=== PATIENT | male | born 1955 | race Caucasian/White ===

== ENCOUNTER 2017-10-08 14:12 | Inpatient (IN) | payer OTHER ==
[2017-10-08] MEDS ORDERED: HYDROmorphone 0.5 MG/0.5 ML SYRINGE IVPUSH ONE (14:44)
[2017-10-08] MEDS ORDERED: Ondansetron 4 MG/2 ML SDV IVPUSH ONE (14:44)
[2017-10-08] MEDS ORDERED: Sodium Chloride 0.9% 1,000 ML IV SCH (14:45)
[2017-10-08] MEDS ORDERED: Sodium Chloride 0.9% 10 ML Syringe FLUSH PRN (14:46)
--- NOTE | 2017-10-08 14:52 | EDM.PDOC ---
ED HPI GENERAL MEDICAL PROBLEM - General Chief Complaint: Abdominal Pain Stated Complaint: FLUID BUILD UP IN ABDOMINAL CAVITY Time Seen by Provider: 10/08/17 14:35 Source of Information: Reports: Patient History Limitations: Reports: No Limitations - History of Present Illness INITIAL COMMENTS - FREE TEXT/NARRATIVE: Patient is a 51-year-old male with history of pancreatic cancer and ascites who presents to the ED complaining of increased fluid to his abdomen. Patient states October 03, 2017 he was seen in [place] and had 3.5 bottles of fluid taken off via paracentesis. Patient's noticed his abdomen certainly growing increasingly larger, taunt, with pain throughout, patient states it is pushing up on his diaphragm causing increasing SOB. His is schedculed this coming Monday for paracentesis but does not believe he can make it. Has been drained on 2 separate occasions. 1st occurrence was September 29. He is mildly dizzy with body position changes with no chest pain at anytime. Denies any SOB at rest. No productive cough. No fever. No pain with urination although he states it is difficult with increased abdominal fluid. Denies any diarrhea. Last BM was yesterday. Has been passing gas. No blood within urine or stool. Of note patient was diagnosed with a blood infection recently requiring hospitalization. He had been receiving IV antibiotics via PICC line right arm. Patient was receiving 2 g of Rocephin for 2 weeks. Last dose was 2 days ago. Source of infection was believed to be the Port-A-Cath. Patient is undergoing chemotherapy at this time. He's had 1 additional round prior to starting this past week. In addition he had 5 weeks of radiation this past March. Patient is unclear on his staging of the Cancer. He was diagnosed with pancreatic cancer May 2016. Abdomen Pain Score (Numeric/FACES): 6 - Related Data Allergies Allergy/AdvReac Type Severity Reaction Status Date / Time No Known Allergies Allergy Verified 10/08/17 21:57 Home Meds: Home Meds Furosemide [Lasix] 20 mg PO BID 10/08/17 [History] Lutein 0 mg PO DAILY 10/08/17 [History] Multivitamin [Multivitamins] 1 cap PO DAILY 10/08/17 [History] Potassium Chloride [K-Tab ER] 20 meq PO BID 10/08/17 [History] Vitamin B Complex [B Complex] 1 tab PO DAILY 10/08/17 [History] Past Medical History Hematologic History: Reports: Anemia Oncologic (Cancer) History: Reports: Pancreatic Other Oncologic History: diagnosed 2016- has had chemo and radiation Social & Family History - Tobacco Use Smoking Status *Q: Never Smoker - Caffeine Use Caffeine Use: Reports: Soda - Recreational Drug Use Recreational Drug Use: No ED ROS GENERAL - Review of Systems Review Of Systems: ROS reveals no pertinent complaints other than HPI. ED EXAM, GI/ABD - Physical Exam Exam: See Below Exam Limited By: No Limitations General Appearance: Alert, WD/WN, No Apparent Distress Ears: Hearing Grossly Normal Nose: Normal Inspection Throat/Mouth: Normal Voice, No Airway Compromise Head: Atraumatic, Normocephalic Neck: Normal Inspection, Supple, Non-Tender, Full Range of Motion Respiratory/Chest: No Respiratory Distress, Lungs Clear, Normal Breath Sounds, No Accessory Muscle Use, Chest Non-Tender Cardiovascular: Normal Peripheral Pulses, Regular Rate, Rhythm, No JVD. No: Systolic Murmur GI/Abdominal Exam: Normal Bowel Sounds, Distended, Other (Positive fluid wave with only mild tenderness with palpation throughout. Has some redness to the skin from previous paracentesis. Unchanged. This was caused by the prepping Solution.) Extremities: Pedal Edema (2+) Neurological: Alert, Oriented, CN II-XII Intact, Normal Cognition, No Motor/ Sensory Deficits Psychiatric: Normal Affect, Normal Mood Skin Exam: Warm, Dry, Intact Course - Vital Signs Last Recorded V/S: Last Vital Signs Temp 98.8 F 10/08/17 20:12 Pulse 97 10/08/17 20:12 Resp 19 10/08/17 20:12 BP 119/67 10/08/17 20:12 Pulse Ox 100 10/08/17 20:12 - Orders/Labs/Meds Orders: Active Orders 24 hr Category Date Time Status EKG 12 Lead [EKG Documentation Completion] [RC] STAT Care 10/08/17 14:45 Active Peripheral IV Care [RC] . DIRECTED Care 10/08/17 14:46 Active CULTURE BLOOD [BC] Stat Lab 10/08/17 17:35 Results CULTURE BLOOD [BC] Stat Lab 10/08/17 18:15 Received Sodium Chloride 0.9% [Saline Flush] Med 10/08/17 14:46 Active 10 ml FLUSH ASDIRECTED PRN Blood Culture x2 Reflex Set [OM.PC] Stat Ot 10/08/17 17:12 Ordered Peripheral IV Insertion Adult [OM.PC] Routine Oth 10/08/17 14:46 Ordered Medication Orders Acetaminophen (Tylenol) 650 mg PO Q4H PRN PRN Reason: Pain (Mild 1-3)/fever Albuterol/Ipratropium (Duoneb 3.0-0.5 Mg/3 Ml) 3 ml NEB Q4H PRN PRN Reason: Shortness Of Breath/wheezing Furosemide (Lasix) 20 mg PO BIDDIURETIC [facility], [facility] Last Admin: 10/09/17 05:26 Dose: 20 mg Hydralazine HCl (Apresoline) 20 mg IVPUSH Q4H PRN PRN Reason: Hypertension Hydromorphone HCl (Dilaudid) 0.5 mg IVPUSH Q2H PRN PRN Reason: Pain (severe 7-10) Promethazine HCl 12.5 mg/ (Sodium Chloride) 50.5 mls @ 100 mls/hr IV Q6H PRN PRN Reason: Nausea/Vomiting Cefotaxime Sodium 2 gm/ Sodium (Chloride) 50 mls @ 100 mls/hr IV Q8H [facility] Last Admin: 10/09/17 05:25 Dose: 100 mls/hr Infusion: 10/08/17 23:18 Dose: 100 mls/hr Admin: 10/08/17 22:48 Dose: 100 mls/hr Vancomycin HCl 1.25 gm/ Sodium (Chloride) 250 mls @ 166.512 mls/hr IV Q8H [facility] Last Admin: 10/09/17 09:05 Dose: 166.512 mls/hr Lorazepam (Ativan) 2 mg IVPUSH Q4H PRN PRN Reason: Seizures Lorazepam (Ativan) 1 mg IV Q6H PRN PRN Reason: Anxiety Magnesium Sulfate (Pharmacy To Dose - Magnesium Replacement) 0 dose .XX ASDIRECTED PRN PRN Reason: RX TO WATCH MAG LEVELS Metoprolol Tartrate (Lopressor) 5 mg IVPUSH Q4H PRN PRN Reason: Tachycardia Multivitamins (Thera) 1 each PO DAILY [facility] Last Admin: 10/09/17 09:04 Dose: 1 each Ondansetron HCl (Zofran) 4 mg IV Q6H PRN PRN Reason: Nausea/Vomiting Oxycodone HCl (Oxycodone) 5 mg PO Q4H PRN PRN Reason: Pain (moderate 4-6) Potassium Chloride (Pharmacy To Dose - Potassium Replacement) 0 dose .XX ASDIRECTED PRN PRN Reason: RX TO WATCH K LEVELS Saccharomyces Boulardii (Florastor) 250 mg PO BID [facility] Last Admin: 10/09/17 09:03 Dose: 250 mg Sodium Chloride (Saline Flush) 10 ml FLUSH ASDIRECTED PRN PRN Reason: Keep Vein Open Last Admin: 10/08/17 15:19 Dose: 10 ml Temazepam (Restoril) 15 mg PO BEDTIME PRN PRN Reason: Sleep Last Admin: 10/08/17 22:57 Dose: 15 mg Vancomycin HCl (Pharmacy To Dose - Vancomycin) 0 dose .XX ASDIRECTED PRN PRN Reason: RX TO DOSE VANCOMYCIN Vitamin B Complex/Vitamin C (Super B With Vitamin C) 1 cap PO DAILY [facility] Last Admin: 10/09/17 09:04 Dose: 1 cap Labs: Laboratory Tests 10/08/17 10/08/17 10/08/17 Range/Units 16:00 16:00 16:00 WBC 20.08 H (4.23-9.07) K/mm3 RBC 3.08 L (4.63-6.08) M/mm3 Hgb 8.8 L (13.7-17.5) gm/L Hct 28.0 L (40.1-51.0) % MCV 90.9 (79.0-92.2) fl MCH 28.6 (25.7-32.2) pg MCHC 31.4 L (32.2-35.5) g/dl RDW Std Deviation 73.6 H (35.1-43.9) fL Plt Count 136 L (163-337) K/mm3 MPV 12.3 (9.4-12.3) fl Neutrophils % (Manual) 92 H (40-60) % Band Neutrophils % 0 (0-10) % Lymphocytes % (Manual) 5 L (20-40) % Atypical Lymphs % 0 % Monocytes % (Manual) 3 (2-10) % Eosinophils % (Manual) 0 L (0.8-7.0) % Basophils % (Manual) 0 L (0.2-1.2) Platelet Estimate Adequate Hypochromasia Few Poikilocytosis 1+ slight Anisocytosis 2+ moderate Macrocytosis 1+ slight Tear Drop Cells Few RBC Morph Comment Not Reportable Sodium 132 L (136-145) mEq/L Potassium 4.8 (3.5-5.1) mEq/L Chloride 101 (98-107) mEq/L Carbon Dioxide 23 (21-32) mEq/L Anion Gap 12.8 (5-15) BUN 33 H (7-18) mg/dL Creatinine 0.8 (0.7-1.3) mg/dL Est Cr Clr Drug Dosing 109.13 mL/min Estimated GFR (MDRD) > 60 (>60) mL/min BUN/Creatinine Ratio 41.3 H (14-18) Glucose 157 H (74-106) mg/dL Lactic Acid (0.4-2.0) mmol/L Calcium 8.6 (8.5-10.1) mg/dL Total Bilirubin 1.9 H (0.2-1.0) mg/dL AST 147 H (15-37) U/L ALT 93 H (16-63) U/L Alkaline Phosphatase 1022 H (46-116) U/L C-Reactive Protein 19.5 H* (<1.0) mg/dL NT-Pro-B Natriuret Pep 278 H (0-125) pg/mL Total Protein 5.2 L (6.4-8.2) g/dl Albumin 1.5 L (3.4-5.0) g/dl Globulin 3.7 gm/dL Albumin/Globulin Ratio 0.4 L (1-2) Lipase 29 L (73-393) U/L Urine Color (Yellow) Urine Appearance (Clear) Urine pH (5.0-8.0) Ur Specific [place] (1.005-1.030) Urine Protein (Negative) Urine Glucose (UA) (Negative) Urine Ketones (Negative) Urine Occult Blood (Negative) Urine Nitrite (Negative) Urine Bilirubin (Negative) Urine Urobilinogen (0.2-1.0) Ur Leukocyte Esterase (Negative) Urine RBC (0-5) /hpf Urine WBC (0-5) /hpf Ur Epithelial Cells (0-5) /hpf Urine Bacteria (FEW) /hpf Urine Mucus (FEW) /hpf 10/08/17 10/08/17 Range/Units 16:15 17:35 WBC (4.23-9.07) K/mm3 RBC (4.63-6.08) M/mm3 Hgb (13.7-17.5) gm/L Hct (40.1-51.0) % MCV (79.0-92.2) fl MCH (25.7-32.2) pg MCHC (32.2-35.5) g/dl RDW Std Deviation (35.1-43.9) fL Plt Count (163-337) K/mm3 MPV (9.4-12.3) fl Neutrophils % (Manual) (40-60) % Band Neutrophils % (0-10) % Lymphocytes % (Manual) (20-40) % Atypical Lymphs % % Monocytes % (Manual) (2-10) % Eosinophils % (Manual) (0.8-7.0) % Basophils % (Manual) (0.2-1.2) Platelet Estimate Hypochromasia Poikilocytosis Anisocytosis Macrocytosis Tear Drop Cells RBC Morph Comment Sodium (136-145) mEq/L Potassium (3.5-5.1) mEq/L Chloride (98-107) mEq/L Carbon Dioxide (21-32) mEq/L Anion Gap (5-15) BUN (7-18) mg/dL Creatinine (0.7-1.3) mg/dL Est Cr Clr Drug Dosing mL/min Estimated GFR (MDRD) (>60) mL/min BUN/Creatinine Ratio (14-18) Glucose (74-106) mg/dL Lactic Acid 1.5 (0.4-2.0) mmol/L Calcium (8.5-10.1) mg/dL Total Bilirubin (0.2-1.0) mg/dL AST (15-37) U/L ALT (16-63) U/L Alkaline Phosphatase (46-116) U/L C-Reactive Protein (<1.0) mg/dL NT-Pro-B Natriuret Pep (0-125) pg/mL Total Protein (6.4-8.2) g/dl Albumin (3.4-5.0) g/dl Globulin gm/dL Albumin/Globulin Ratio (1-2) Lipase (73-393) U/L Urine Color Dark yellow (Yellow) Urine Appearance Clear (Clear) Urine pH 6.0 (5.0-8.0) Ur Specific [place] 1.020 (1.005-1.030) Urine Protein 1+ H (Negative) Urine Glucose (UA) Negative (Negative) Urine Ketones Negative (Negative) Urine Occult Blood Negative (Negative) Urine Nitrite Negative (Negative) Urine Bilirubin 1+ H (Negative) Urine Urobilinogen 2.0 H (0.2-1.0) Ur Leukocyte Esterase Negative (Negative) Urine RBC 0-5 (0-5) /hpf Urine WBC 0-5 (0-5) /hpf Ur Epithelial Cells 0-5 (0-5) /hpf Urine Bacteria Moderate H (FEW) /hpf Urine Mucus Moderate H (FEW) /hpf Meds: Medications Generic Name Dose Route Start Last Admin Trade Name Freq PRN Reason Stop Dose Admin Acetaminophen 650 mg 10/08/17 21:24 Tylenol PO Q4H PRN Pain (Mild 1-3)/fever Albuterol/Ipratropium 3 ml 10/08/17 21:24 Duoneb 3.0-0.5 Mg/3 Ml NEB Q4H PRN Shortness Of Breath/wheezing Furosemide 20 mg 10/09/17 06:00 10/09/17 05:26 Lasix PO 20 mg BIDDIURETIC MICKI Administration Hydralazine HCl 20 mg 10/08/17 21:23 Apresoline IVPUSH Q4H PRN Hypertension Hydromorphone HCl 0.5 mg 10/09/17 09:26 Dilaudid IVPUSH Q2H PRN Pain (severe 7-10) Promethazine HCl 12.5 mg/ 50.5 mls @ 100 mls/hr 10/08/17 21:24 Sodium Chloride IV Q6H PRN Nausea/Vomiting Cefotaxime Sodium 2 gm/ Sodium 50 mls @ 100 mls/hr 10/08/17 22:00 10/09/17 05 :25 Chloride IV 100 mls/hr Q8H MICKI Administration Vancomycin HCl 1.25 gm/ Sodium 250 mls @ 166.512 mls/hr 10/09/17 08:00 09:05 Chloride IV 166.512 mls/hr Q8H MICKI Administration Lorazepam 2 mg 10/08/17 21:23 Ativan IVPUSH Q4H PRN Seizures Lorazepam 1 mg 10/08/17 21:24 Ativan IV Q6H PRN Anxiety Magnesium Sulfate 0 dose 10/08/17 21:30 Pharmacy To Dose - Magnesium Replacement .XX ASDIRECTED PRN RX TO WATCH MAG LEVELS Metoprolol Tartrate 5 mg 10/08/17 21:23 Lopressor IVPUSH Q4H PRN Tachycardia Multivitamins 1 each 10/09/17 09:00 10/09/17 09:04 Thera PO 1 each DAILY MICKI Administration Ondansetron HCl 4 mg 10/08/17 21:24 Zofran IV Q6H PRN Nausea/Vomiting Oxycodone HCl 5 mg 10/08/17 21:24 Oxycodone PO Q4H PRN Pain (moderate 4-6) Potassium Chloride 0 dose 10/08/17 21:30 Pharmacy To Dose - Potassium Replacement .XX ASDIRECTED PRN RX TO WATCH K LEVELS Saccharomyces Boulardii 250 mg 10/09/17 09:00 10/09/17 09:03 Florastor PO 250 mg BID MICKI Administration Sodium Chloride 10 ml 10/08/17 14:46 10/08/17 15:19 Saline Flush FLUSH 10 ml ASDIRECTED PRN Administration Keep Vein Open Temazepam 15 mg 10/08/17 21:24 10/08/17 22:57 Restoril PO 15 mg BEDTIME PRN Administration Sleep Vancomycin HCl 0 dose 10/08/17 21:45 Pharmacy To Dose - Vancomycin .XX ASDIRECTED PRN RX TO DOSE VANCOMYCIN Vitamin B Complex/Vitamin C 1 cap 10/09/17 09:00 10/09/17 09:04 Super B With Vitamin C PO 1 cap DAILY MICKI Administration Discontinued Medications Generic Name Dose Route Start Last Admin Trade Name Freq PRN Reason Stop Dose Admin Fentanyl 12 mcg 10/08/17 21:30 10/08/17 23:07 Duragesic TRDERM Not Given Q72H MICKI Hydromorphone HCl 0.5 mg 10/08/17 14:44 10/08/17 15:19 Dilaudid IVPUSH 10/08/17 14:45 0.5 mg ONETIME ONE Administration Hydromorphone HCl 0.25 mg 10/08/17 21:24 Dilaudid IVPUSH Q2H PRN Pain (severe 7-10) Sodium Chloride 1,000 mls @ 150 mls/hr 10/08/17 14:45 Normal Saline IV ASDIRECTED MICKI Cefepime HCl 2 gm/ Premix 50 mls @ 100 mls/hr 10/08/17 18:11 10/08/17 18:41 IV 10/08/17 18:40 100 mls/hr ONETIME ONE Administration Vancomycin HCl 2 gm/ Sodium 250 mls @ 250 mls/hr 10/08/17 18:11 10/08/17 19: 04 Chloride IV 10/08/17 19:10 Not Given ONETIME ONE Vancomycin HCl 2 gm/ Sodium 250 mls @ 250 mls/hr 10/08/17 18:26 10/08/17 19: 04 Chloride IV 10/08/17 19:25 Not Given ONETIME ONE Sodium Chloride Confirm 10/08/17 18:50 10/08/17 19:03 Normal Saline Administered 10/08/17 18:51 Not Given Dose 250 mls @ as directed .ROUTE .STK-MED ONE Vancomycin HCl 2 gm/ Sodium 250 mls @ 250 mls/hr 10/08/17 19:00 10/08/17 19: 17 Chloride IV 10/08/17 19:59 250 mls/hr ONETIME ONE Administration Vancomycin HCl 1.25 gm/ Sodium 500 mls @ 333 mls/hr 10/09/17 06:00 Chloride IV Q8H [facility] Lidocaine/Epinephrine 20 ml 10/08/17 17:14 10/08/17 19:22 Xylocaine 1% With Epinephrine 1:100,000 INJECT 10/08/17 17:15 Not Given ONETIME ONE Lidocaine/Epinephrine 20 ml 10/08/17 17:15 10/08/17 19:22 Xylocaine 1% With Epinephrine 1:100,000 INJECT 10/08/17 17:16 Not Given ONETIME ONE Lorazepam 0.5 mg 10/08/17 21:41 10/08/17 23:07 Ativan IVPUSH 10/08/17 21:42 Not Given ONETIME ONE Protocol Magnesium Oxide 800 mg 10/09/17 09:00 10/09/17 09:04 Magnesium Oxide PO 10/09/17 09:01 800 mg ONETIME ONE Administration Miscellaneous Information 1 ea 10/08/17 21:30 10/08/17 23:08 Remove Patch TRDERM Not Given Q72H [facility] Non-Formulary Medication 10 mg 10/09/17 09:00 Lutein PO DAILY MICKI Ondansetron HCl 4 mg 10/08/17 14:44 10/08/17 15:19 Zofran IVPUSH 10/08/17 14:45 4 mg ONETIME ONE Administration - Re-Assessments/Exams Free Text/Narrative Re-Assessment/Exam: Patient is a positive fluid wave with redness noted to the right anterior lateral aspect of the abdomen and low back. It is not sharply demarcated. Centrally appears to be contact dermatitis with dry skin present. It appears patient has been itching this area. Mild increased warmth noted. Concerning for possible low-grade cellulitis. Patient states this is secondary to allergic reaction to prepping solution. First paracentesis was September 29 and then 4 days later. This has not worsened. He does not have peritoneal signs. Will obtain records from [facility] and clinic where his oncologist resides. IV established. Ordered Dilaudid 0.5 mg IVP and also Zofran 4 mg IVP. Initial labs and studies will include CBC, chem 14, lipase, proBNP, UA, CRP, bladder scan, EKG, and abdomen series with chest. X-ray of the abdomen and chest did not reveal any concerning findings. This was reviewed with Dr. Joshua Perez. 10/08/17 16:44 EKG sinus rhythm at a rate of 96 with low voltage to the extremity leads. Diffuse T-wave flattening. No evidence of acute ischemia. Labs reviewed: White blood cell count 20.08, hemoglobin 8.8, platelet count 136 , neutrophil percent is 92, sodium 132, BUN/creatinine 33, creatinine 0.8, glucose 157, total bilirubin is 1.9, AST 147, ALT 93, alk phosphatase is 1022, CRP 19.5, proBNP is 278, lipase 29. Findings are concerning for spontaneous bacterial peritonitis. As spoken with Dr. Perez and she agrees with proceeding with paracentesis while in the ED. Patient agrees with proceeding with paracentesis. Risks, benefits, and alternative treatments discussed with patient. Risks being bleeding, infection , perforation of bowel. Order blood cultures 2 and lactic acid. Lactic Acid: WNL. 10/08/17 18:00 we will set up for paracentesis. Dr. ePrez did evaluate the patient and is leaning towards more conservative therapy at this point. Findings are concerning for possible cellulitis. Will opt to treat with broad- spectrum antibiotics and then have Gen. surgery consult with paracentesis performed tomorrow. 10/08/17 18:[address] Adames, requests I contact transitions manager rn General Surgeon if they would be willing to do a paracentesis if consulted. If so he agreed to admit. [address] López stated he would perform paracentesis on consult. He is not transitions manager rn tomorrow thus consulting him or may work as well. Attempted to call Dr. Adames with no answer. Nursing staff has called as well. They are arranging for room. Departure - Departure Time of Disposition: 17:00 Disposition: Admitted As Inpatient 68 Condition: Fair Clinical Impression: Cellulitis of abdominal wall Ascites Qualifiers: Ascites type: malignant Qualified Code(s): R18.0 - Malignant ascites - Discharge Information - My Orders Last 24 Hours: My Active Orders 10/08/17 14:45 EKG 12 Lead [EKG Documentation Completion] [RC] STAT 10/08/17 14:46 Peripheral IV Care [RC] . DIRECTED Sodium Chloride 0.9% [Saline Flush] 10 ml FLUSH ASDIRECTED PRN Peripheral IV Insertion Adult [OM.PC] Routine 10/08/17 17:12 Blood Culture x2 Reflex Set [OM.PC] Stat 10/08/17 17:35 CULTURE BLOOD [BC] Stat 10/08/17 18:15 CULTURE BLOOD [BC] Stat - Assessment/Plan Last 24 Hours: My Active Orders 10/08/17 14:45 EKG 12 Lead [EKG Documentation Completion] [RC] STAT 10/08/17 14:46 Peripheral IV Care [RC] . DIRECTED Sodium Chloride 0.9% [Saline Flush] 10 ml FLUSH ASDIRECTED PRN Peripheral IV Insertion Adult [OM.PC] Routine 10/08/17 17:12 Blood Culture x2 Reflex Set [OM.PC] Stat 10/08/17 17:35 CULTURE BLOOD [BC] Stat 10/08/17 18:15 CULTURE BLOOD [BC] Stat
[2017-10-08] MEDS ORDERED: Lidocaine 1% with EPINEPHrine 1:100,000 20 ML MDV INJECT ONE ×2 (17:14→17:15)
[2017-10-08] MEDS ORDERED: Cefepime 2 GM in Premix Bag 1 BAG IV ONE (18:11)
[2017-10-08] MEDS ORDERED: Sodium Chloride 0.9% 250 ML ONE (18:50)
[2017-10-08] MEDS ORDERED: LORazepam 2 MG/ML SDV IVPUSH PRN (21:23)
[2017-10-08] MEDS ORDERED: hydrALAZINE 20 MG/ML SDV IVPUSH PRN (21:23)
[2017-10-08] MEDS ORDERED: Metoprolol Tartrate 5 MG/5 ML SDV IVPUSH PRN (21:23)
--- NOTE | 2017-10-08 21:23 | PCM.HP ---
H&P History of Present Illness - General Date of Service: 10/08/17 Admit Problem/Dx: Admission Diagnosis/Problem Admission Diagnosis/Problem Cellulitis Source of Information: Patient, Family, Old Records, Provider, RN Notes Reviewed , Significant Other History Limitations: Reports: No Limitations - History of Present Illness Initial Comments - Free Text/Narative: This is s 61 yo white male with no significant past medical hx/o who comes in for worsening abdominal tightness and edema. Patient carries a hx/o pancreatic cancer. He was diagnosed back in 2015 in [place], [place]. He took oncologic treatment up until November of 2016. He was referred to [facility] on the 22 of December and then received radiation therapy for 5 weeks at the end of January 2017. He is currently following Dr. David Salazar for oncologic care in [place], [place]. He has been going to [facility] for routine paracentesis. Unfortunately, IR is not available so he proceeded to come over here to [place] for further evaluation. He had his port-a-cath removed about a week ago and currently has a PICC line for IV access. He also just completed an intravenous infusion of Rocephin. Patient denies alcohol or tobacco use. He further denies any history of pancreatic cancer in the family. His initial workup in the emergency department shows a CBC remarkable for WBC of 20.08, RBC of 3.03, hemoglobin of 8.8, hematocrit of 28, MCHC of 31.4, RDW of 17.6, platelet count of 136, neutrophils of 92% and lymphocytes of 5%. His chemistry is remarkable for sodium of 132, BUN of 33, glucose of 157, total bilirubin of 1.9, AST of 147, ALT of 93, alkaline phosphatase of 1022, CRP of 19.5, proBNP of 278, total protein of 5.2, albumin of 1.5, and lipase of 29. His UA is negative for urinary tract infection. Chest/abdominal x-ray shows small pleural effusions. TIPS stent and right sided PICC line. Patient is being admitted for abdominal ascites and distension secondary to pancreatic cancer. He is full code. Abdomen Pain Score (Numeric/FACES): 6 - Related Data Allergies/Adverse Reactions: Allergies Allergy/AdvReac Type Severity Reaction Status Date / Time No Known Allergies Allergy Verified 10/08/17 21:57 Home Medications: Home Meds Furosemide [Lasix] 20 mg PO BID 10/08/17 [History] Lutein 0 mg PO DAILY 10/08/17 [History] Multivitamin [Multivitamins] 1 cap PO DAILY 10/08/17 [History] Potassium Chloride [K-Tab ER] 20 meq PO BID 10/08/17 [History] Vitamin B Complex [B Complex] 1 tab PO DAILY 10/08/17 [History] Past Medical History Hematologic History: Reports: Anemia Oncologic (Cancer) History: Reports: Pancreatic Other Oncologic History: diagnosed 2016- has had chemo and radiation Social & Family History - Tobacco Use Smoking Status *Q: Never Smoker Second Hand Smoke Exposure: No - Caffeine Use Caffeine Use: Reports: Soda, Tea - Alcohol Use Days Per Week of Alcohol Use: 1 Number of Drinks Per Day: 0 Total Drinks Per Week: 0 Date of Last Drink: 09/03/17 Time of Last Drink: 16:00 - Recreational Drug Use Recreational Drug Use: No H&P Review of Systems - Review of Systems: Review Of Systems: See Below General: Reports: Decreased Appetite. Denies: Fever, Chills, Malaise, Weakness , Fatigue HEENT: Reports: No Symptoms Pulmonary: Denies: Shortness of Breath, Wheezing, Pleuritic Chest Pain, Cough, Sputum, Hemoptysis Cardiovascular: Reports: Edema (abdominal). Denies: Palpitations, Dyspnea on Exertion, Orthopnea, Lightheadedness, Syncope, Claudication, Blood Pressure Problem Gastrointestinal: Reports: Anorexia, Decreased Appetite, Distension, Flatus, Other (Abdominal tightness). Denies: Abdominal Pain, Bloody Stool, Constipation , Diarrhea, Difficulty Swallowing, Hematemesis, Hematochezia, Nausea, Vomiting Genitourinary: Reports: Urgency Musculoskeletal: Reports: No Symptoms Skin: Reports: Erythema. Denies: Cyanosis, Mottled, Pallor, Diaphoresis Psychiatric: Denies: Depression, Anxiety, Hallucinations, Homicidal Ideation Neurological: Reports: Weakness. Denies: Confusion, Pre-Existing Deficit, Difficulty Walking, Gait Disturbance Hematologic/Lymphatic: Reports: No Symptoms Immunologic: Reports: No Symptoms Exam - Exam Exam: See Below - Vital Signs Vital Signs: Last Vital Signs Temp 37.1 C 10/08/17 20:12 Pulse 97 10/08/17 20:12 Resp 19 10/08/17 20:12 BP 119/67 10/08/17 20:12 Pulse Ox 100 10/08/17 20:12 Weight: 83.659 kg - Exam General: Alert, Oriented, Cooperative, Other (cachectic). No: Mild Distress HEENT: Conjunctiva Clear, EACs Clear, EOMI, Hearing Intact, Nares Patent, Normal Nasal Septum, Posterior Pharynx Clear, Pupils Equal, Pupils Reactive. No : Mucosa Moist & [place] Neck: Supple, Trachea Midline, +2 Carotid Pulse wo Bruit Lungs: Normal Respiratory Effort, Decreased Breath Sounds Cardiovascular: Regular Rate, Regular Rhythm GI/Abdominal Exam: Normal Bowel Sounds, Soft, No Mass, Distended, Guarding, Tender, Hepatomegaly, Other (Abdominal edema). No: Rigid, Rebound (Male) Exam: Deferred Rectal (Males) Exam: Deferred Back Exam: Normal Inspection, Decreased Range of Motion Extremities: Normal Inspection, Normal Range of Motion, Non-Tender, No Pedal Edema, Normal Capillary Refill Peripheral Pulses: 3+: Posterior Tibial (L), Posterior Tibial (R), Dorsalis Pedis (L), Dorsalis Pedis (R) Skin: Warm, Dry, Intact Neuro Extensive - Mental Status: Oriented x3, Normal Cognition, Memory Intact Neuro Extensive - Motor, Sensory, Reflexes: CN II-XII Intact, Normal Gait Psychiatric: Alert, Normal Mood. No: Normal Affect, Anxious, Depressed, Agitated, Suicidal Ideation - Patient Data Result Diagrams: 10/09/17 06:15 10/09/17 06:15 *Q Meaningful Use (ADM) - VTE *Q VTE Criteria *Q: - Stroke *Q Stroke Criteria *Q: - AMI *Q AMI Criteria *Q: Problem List Initiated/Reviewed/Updated: Yes Orders Last 24hrs: Active Orders 24 hr Category Date Time Status Cardiac Monitoring [RC] . DIRECTED Care 10/08/17 19:50 Active Medication Orders Sodium Chloride (Saline Flush) 10 ml FLUSH ASDIRECTED PRN PRN Reason: Keep Vein Open Last Admin: 10/08/17 15:19 Dose: 10 ml Assessment/Plan Comment:: Assessment/Plan: Acute: Abdominal Ascites and Edema - 2/2 Pancreatic Cancer - Abdominal CT can ordered - GD consult in AM for paracentesis - PRN and Scheduled Pain Medications - Continue diuretic and K supplement SSTI/Erysipelas - Abdomen - High Risk for SBP - Cefotaxime 2 gram Q8H with better fluid penetration and Vancomycin 1 violeta BID for pharmacy to dose - Monitor response Pancytpenia - 2/2 Underlying Malignancy - Hgb is 8.8; no baseline - Consider transfusion if continues to drop Hypoalbuminemia - Albumin of 1.5 - Dietary consult for protein wasting syndrome Chronic: Pancreatic Cancer Weight Loss Plan: Admit to the floor Resume Home Meds Routine AM Labs PT/OT consult Dietary Consult GD consult in for paracentesis SW/CM for d/c planning Code Status:1
[2017-10-08] MEDS ORDERED: HYDROmorphone 0.5 MG/0.5 ML SYRINGE IVPUSH PRN (21:24)
[2017-10-08] MEDS ORDERED: LORazepam 2 MG/ML SDV IV PRN (21:24)
[2017-10-08] MEDS ORDERED: Ondansetron 4 MG/2 ML SDV IV PRN (21:24)
[2017-10-08] MEDS ORDERED: Albuterol/Ipratropium 3.0-0.5 MG/3 ML Neb Soln NEB PRN (21:24)
[2017-10-08] MEDS ORDERED: Acetaminophen 325 MG Tab PO PRN (21:24)
[2017-10-08] MEDS ORDERED: Promethazine 12.5 MG in Sodium Chloride 0.9% 50 ML IV PRN (21:24)
[2017-10-08] MEDS ORDERED: oxyCODONE 5 MG Tab PO PRN (21:24)
[2017-10-08] MEDS ORDERED: fentaNYL 12 MCG/HR Transdermal Patch TRDERM SCH (21:30)
[2017-10-08] MEDS: Cefotaxime 2 GM in Sodium Chloride 0.9% 50 ML IV SCH (22:48)
[2017-10-08] MEDS: Temazepam 15 MG Cap PO PRN (22:57)
[2017-10-08] MEDS: LORazepam 2 MG/ML SDV IVPUSH ONE ×2 (22:58→23:07)
[2017-10-09] MEDS: Cefotaxime 2 GM in Sodium Chloride 0.9% 50 ML IV SCH ×3 (05:25→22:08)
[2017-10-09] MEDS ORDERED: Vancomycin 1.25 GM in Sodium Chloride 0.9% 500 ML IV SCH (06:00)
[2017-10-09] MEDS ORDERED: Furosemide 20 MG Tab PO SCH (06:00)
--- NOTE | 2017-10-09 07:42 | PCM.PN ---
- General Info Date of Service: 10/09/17 Admission Dx/Problem (Free Text): Admission Diagnosis/Problem Admission Diagnosis/Problem Cellulitis Subjective Update: Follow Up Functional Status: Reports: Pain Controlled, Tolerating Diet, Ambulating, Urinating - Review of Systems General: Reports: Weakness, Fatigue, Malaise. Denies: Fever HEENT: Denies: No Symptoms Pulmonary: Denies: Shortness of Breath, Cough Cardiovascular: Reports: Edema. Denies: Chest Pain, Palpitations, Dyspnea on Exertion, Orthopnea, Lightheadedness Gastrointestinal: Reports: Abdominal Pain, Decreased Appetite, Other (Abdominal edema). Denies: Nausea, Vomiting Genitourinary: Reports: No Symptoms Musculoskeletal: Reports: No Symptoms Skin: Reports: Rash (abdominal region). Denies: Cyanosis, Jaundice, Mottled, Pallor, Diaphoresis, Bruising Neurological: Reports: Weakness, Gait Disturbance. Denies: Confusion, Pre- Existing Deficit, Seizure, Syncope, Difficulty Walking Psychiatric: Denies: Depression, Anxiety, Agitation, Hallucinations Systems Review Comment:: No significant overnight or acute issues. He slept pretty good. His pain is controlled at rest but no when he is moving or with activity. His Hgb is now at 8.0 this morning. He remains afebrile with improved WBC level of 13.34. - Patient Data Vitals - Most Recent: Last Vital Signs Temp 37.1 C 10/08/17 20:12 Pulse 97 10/08/17 20:12 Resp 19 10/08/17 20:12 BP 119/67 10/08/17 20:12 Pulse Ox 100 10/08/17 20:12 Weight - Most Recent: 83.659 kg Lab Results Last 24 Hours: Laboratory Results - last 24 hr 10/09/17 10/09/17 Range/Units 06:15 06:15 WBC 13.34 H (4.23-9.07) K/mm3 RBC 2.78 L (4.63-6.08) M/mm3 Hgb 8.0 L (13.7-17.5) gm/L Hct 25.3 L (40.1-51.0) % MCV 91.0 (79.0-92.2) fl MCH 28.8 (25.7-32.2) pg MCHC 31.6 L (32.2-35.5) g/dl RDW Std Deviation 72.2 H (35.1-43.9) fL Plt Count 102 L (163-337) K/mm3 MPV 12.4 H (9.4-12.3) fl Neut % (Auto) 97.0 H (34.0-67.9) % Lymph % (Auto) 1.1 L (21.8-53.1) % [place] % (Auto) 0.2 L (5.3-12.2) % Eos % (Auto) 1.6 (0.8-7.0) Baso % (Auto) 0.0 L (0.1-1.2) % Neut # (Auto) 12.92 H (1.78-5.38) K/mm3 Lymph # (Auto) 0.15 L (1.32-3.57) K/mm3 [place] # (Auto) 0.03 L (0.30-0.82) K/mm3 Eos # (Auto) 0.22 (0.04-0.54) K/mm3 Baso # (Auto) 0.00 L (0.01-0.08) K/mm3 Sodium 132 L (136-145) mEq/L Potassium 4.5 (3.5-5.1) mEq/L Chloride 101 (98-107) mEq/L Carbon Dioxide 24 (21-32) mEq/L Anion Gap 11.5 (5-15) BUN 35 H (7-18) mg/dL Creatinine 0.9 (0.7-1.3) mg/dL Est Cr Clr Drug Dosing 97.00 mL/min Estimated GFR (MDRD) > 60 (>60) mL/min BUN/Creatinine Ratio 38.9 H (14-18) Glucose 157 H (74-106) mg/dL Calcium 8.4 L (8.5-10.1) mg/dL Magnesium 1.7 L (1.8-2.4) mg/dl Total Bilirubin 2.0 H (0.2-1.0) mg/dL AST 100 H (15-37) U/L ALT 95 H (16-63) U/L Alkaline Phosphatase 873 H (46-116) U/L C-Reactive Protein 31.4 H* (<1.0) mg/dL Total Protein 4.9 L (6.4-8.2) g/dl Albumin 1.3 L (3.4-5.0) g/dl Globulin 3.6 gm/dL Albumin/Globulin Ratio 0.4 L (1-2) Med Orders - Current: Current Medications Acetaminophen (Tylenol) 650 mg PO Q4H PRN PRN Reason: Pain (Mild 1-3)/fever Albuterol/Ipratropium (Duoneb 3.0-0.5 Mg/3 Ml) 3 ml NEB Q4H PRN PRN Reason: Shortness Of Breath/wheezing Fentanyl (Duragesic) 12 mcg TRDERM Q72H [facility] Last Admin: 10/08/17 23:07 Dose: Not Given Furosemide (Lasix) 20 mg PO BIDDIURETIC [facility] Last Admin: 10/09/17 05:26 Dose: 20 mg Hydralazine HCl (Apresoline) 20 mg IVPUSH Q4H PRN PRN Reason: Hypertension Hydromorphone HCl (Dilaudid) 0.25 mg IVPUSH Q2H PRN PRN Reason: Pain (severe 7-10) Promethazine HCl 12.5 mg/ (Sodium Chloride) 50.5 mls @ 100 mls/hr IV Q6H PRN PRN Reason: Nausea/Vomiting Cefotaxime Sodium 2 gm/ Sodium (Chloride) 50 mls @ 100 mls/hr IV Q8H [facility] Last Admin: 10/09/17 05:25 Dose: 100 mls/hr Vancomycin HCl 1.25 gm/ Sodium (Chloride) 500 mls @ 333 mls/hr IV Q8H [facility] Lorazepam (Ativan) 2 mg IVPUSH Q4H PRN PRN Reason: Seizures Lorazepam (Ativan) 1 mg IV Q6H PRN PRN Reason: Anxiety Magnesium Sulfate (Pharmacy To Dose - Magnesium Replacement) 0 dose .XX ASDIRECTED PRN PRN Reason: RX TO WATCH MAG LEVELS Metoprolol Tartrate (Lopressor) 5 mg IVPUSH Q4H PRN PRN Reason: Tachycardia Miscellaneous Information (Remove Patch) 1 ea TRDERM Q72H [facility] Last Admin: 10/08/17 23:08 Dose: Not Given Multivitamins (Thera) 1 each PO DAILY [facility] Ondansetron HCl (Zofran) 4 mg IV Q6H PRN PRN Reason: Nausea/Vomiting Oxycodone HCl (Oxycodone) 5 mg PO Q4H PRN PRN Reason: Pain (moderate 4-6) Potassium Chloride (Pharmacy To Dose - Potassium Replacement) 0 dose .XX ASDIRECTED PRN PRN Reason: RX TO WATCH K LEVELS Saccharomyces Boulardii (Florastor) 250 mg PO TID MICKI Sodium Chloride (Saline Flush) 10 ml FLUSH ASDIRECTED PRN PRN Reason: Keep Vein Open Last Admin: 10/08/17 15:19 Dose: 10 ml Temazepam (Restoril) 15 mg PO BEDTIME PRN PRN Reason: Sleep Last Admin: 10/08/17 22:57 Dose: 15 mg Vancomycin HCl (Pharmacy To Dose - Vancomycin) 0 dose .XX ASDIRECTED PRN PRN Reason: RX TO DOSE VANCOMYCIN Vitamin B Complex/Vitamin C (Super B With Vitamin C) 1 cap PO DAILY [facility] Discontinued Medications Hydromorphone HCl (Dilaudid) 0.5 mg IVPUSH ONETIME ONE Stop: 10/08/17 14:45 Last Admin: 10/08/17 15:19 Dose: 0.5 mg Sodium Chloride (Normal Saline) 1,000 mls @ 150 mls/hr IV ASDIRECTED MICKI Cefepime HCl 2 gm/ Premix 50 mls @ 100 mls/hr IV ONETIME ONE Stop: 10/08/17 18:40 Last Admin: 10/08/17 18:41 Dose: 100 mls/hr Vancomycin HCl 2 gm/ Sodium (Chloride) 250 mls @ 250 mls/hr IV ONETIME ONE Stop: 10/08/17 19:10 Last Admin: 10/08/17 19:04 Dose: Not Given Vancomycin HCl 2 gm/ Sodium (Chloride) 250 mls @ 250 mls/hr IV ONETIME ONE Stop: 10/08/17 19:25 Last Admin: 10/08/17 19:04 Dose: Not Given Sodium Chloride (Normal Saline) Confirm Administered Dose 250 mls @ as directed .ROUTE .STK-MED ONE Stop: 10/08/17 18:51 Last Admin: 10/08/17 19:03 Dose: Not Given Vancomycin HCl 2 gm/ Sodium (Chloride) 250 mls @ 250 mls/hr IV ONETIME ONE Stop: 10/08/17 19:59 Last Admin: 10/08/17 19:17 Dose: 250 mls/hr Lidocaine/Epinephrine (Xylocaine 1% With Epinephrine 1:100,000) 20 ml INJECT ONETIME ONE Stop: 10/08/17 17:15 Last Admin: 10/08/17 19:22 Dose: Not Given Lidocaine/Epinephrine (Xylocaine 1% With Epinephrine 1:100,000) 20 ml INJECT ONETIME ONE Stop: 10/08/17 17:16 Last Admin: 10/08/17 19:22 Dose: Not Given Lorazepam (Ativan) 0.5 mg IVPUSH ONETIME ONE PRN Reason: Protocol Stop: 10/08/17 21:42 Last Admin: 10/08/17 23:07 Dose: Not Given Non-Formulary Medication (Lutein) 10 mg PO DAILY [facility] Ondansetron HCl (Zofran) 4 mg IVPUSH ONETIME ONE Stop: 10/08/17 14:45 Last Admin: 10/08/17 15:19 Dose: 4 mg - Exam General: Alert, Oriented, Cooperative, No Acute Distress, Other (cachectic) HEENT: Pupils Equal, Pupils Reactive, EOMI, Mucous Membr. Moist/[place], Other ( bitemporal wasting) Neck: Supple, Trachea Midline, No JVD, No Thyromegaly Lungs: Normal Respiratory Effort, Decreased Breath Sounds Cardiovascular: Regular Rate, Regular Rhythm GI/Abdominal Exam: Normal Bowel Sounds, No Organomegaly, Distended, Tender, Hepatomegaly, Other (tight on palpation). No: Soft, Rigid, Rebound, Hernia (Male) Exam: Deferred Back Exam: Normal Inspection, Decreased Range of Motion Extremities: Normal Inspection, Normal Range of Motion, Non-Tender, Pedal Edema , Other (2-3+ pitting edema on bilateral lower extremity). No: Normal Capillary Refill Peripheral Pulses: 1+: Dorsalis Pedis (L), Dorsalis Pedis (R) Skin: Warm, Dry, Intact Neurological: No New Focal Deficit Psy/Mental Status: Alert, Normal Affect, Normal Mood - Problem List Review Problem List Initiated/Reviewed/Updated: Yes - My Orders Last 24 Hours: My Active Orders 10/08/17 21:23 LORazepam [Ativan] 2 mg IVPUSH Q4H PRN Metoprolol Tartrate [Lopressor] 5 mg IVPUSH Q4H PRN hydrALAZINE [Apresoline] 20 mg IVPUSH Q4H PRN 10/08/17 21:24 Height and Weight [RC] DAILY Oxygen Therapy [RC] PRN Up With Assistance [RC] ASDIRECTED Up ad Carol [RC] ASDIRECTED VTE/DVT Education [RC] DAILY Vital Signs [RC] Q4H Acetaminophen [Tylenol] 650 mg PO Q4H PRN Albuterol/Ipratropium [DuoNeb 3.0-0.5 MG/3 ML] 3 ml NEB Q4H PRN HYDROmorphone [Dilaudid] 0.25 mg IVPUSH Q2H PRN LORazepam [Ativan] 1 mg IV Q6H PRN Ondansetron [Zofran] 4 mg IV Q6H PRN Promethazine [Phenergan] 12.5 mg Sodium Chloride 0.9% [Normal Saline] 50 ml IV Q6H Temazepam [Restoril] 15 mg PO BEDTIME PRN oxyCODONE 5 mg PO Q4H PRN Resuscitation Status Routine 10/08/17 21:25 Intake and Output [RC] 04,16 Sequential Compression Device [OM.PC] Per Unit Routine 10/08/17 21:26 Antiembolic Devices [RC] 10,22 RT Aerosol Therapy [RC] ASDIRECTED 10/08/17 21:27 Consult to Case Management [CONS] Routine Consult to Physician [CONS] Routine Consult to Appliance Mechanic [CONS] Routine Consult to Spiritual Care [CONS] Routine OT Evaluation and Treatment [CONS] Routine PT Evaluation and Treatment [CONS] Routine 10/08/17 21:28 Notify Provider Consults [RC] ASDIRECTED 10/08/17 21:30 Magnesium Rep Pharmacy to Dose [Pharmacy to Dose - Magnesium Replacement] 0 dose .XX ASDIRECTED PRN Potassium Rep Pharmacy to Dose [Pharmacy to Dose - Potassium Replacement] 0 dose .XX ASDIRECTED PRN Remove Patch 1 ea TRDERM Q72H fentaNYL [Duragesic] 12 mcg TRDERM Q72H 10/08/17 21:45 Vancomycin Pharmacy to Dose [Pharmacy to Dose - Vancomycin] 0 dose .XX ASDIRECTED PRN 10/08/17 22:00 Cefotaxime [Claforan] 2 gm Sodium Chloride 0.9% [Normal Saline] 50 ml IV Q8H 10/08/17 Dinner Regular Diet [DIET] 10/09/17 06:00 Furosemide [Lasix] 20 mg PO BIDDIURETIC Vancomycin 1.25 gm Sodium Chloride 0.9% [Normal Saline] 500 ml IV Q8H 10/09/17 06:15 CBC WITH AUTO DIFF [HEME] AM 10/09/17 07:00 Abdomen wo Cont [CT] Routine 10/09/17 09:00 Multivitamins,Therapeutic [Thera] 1 each PO DAILY Saccharomyces Boulardii [Florastor] 250 mg PO TID Vitamin B Complex with C [Super B With Vitamin C] 1 cap PO DAILY 10/09/17 21:30 VANCOMYCIN TROUGH [CHEM] Timed 10/10/17 05:11 C-REACTIVE PROTEIN [CHEM] AM CBC WITH AUTO DIFF [HEME] AM COMPREHENSIVE METABOLIC PN,CMP [CHEM] AM MAGNESIUM [CHEM] AM 10/11/17 05:11 C-REACTIVE PROTEIN [CHEM] AM CBC WITH AUTO DIFF [HEME] AM COMPREHENSIVE METABOLIC PN,CMP [CHEM] AM MAGNESIUM [CHEM] AM 10/12/17 05:11 C-REACTIVE PROTEIN [CHEM] AM CBC WITH AUTO DIFF [HEME] AM COMPREHENSIVE METABOLIC PN,CMP [CHEM] AM MAGNESIUM [CHEM] AM - Plan Plan:: Assessment/Plan: Acute: Bacteremia - 07/27 bottle GPC in Pairs - Cannot r/o contamination - Has PICC line as possible source - Will repeat blood culture in AM Abdominal Ascites and Edema - 2/2 Pancreatic Cancer - Abdominal CT scan report reads multiple low density lesions within the right and left lobes of the liver ; necrotic liver metastasis versus polycystic liver disease. Small right-sided per effusion and moderate ascites within the abdomen - Dr. España consult for paracentesis; recommended against it - PRN and Scheduled Pain Medications - Consider lasix drip since paracentesis will not be done SSTI/Erysipelas, Improving - Around his abdomen - High Risk for SBP - Continue Cefotaxime 2 gram Q8H and Vancomycin 1 violeta BID for pharmacy to dose - Monitor response Pancytopenia - 2/2 Underlying Malignancy - Hgb is 8.8; no baseline--> now 8.0 - He is more considerably weak and tires; still has reduced appetite - He meets criteria for transfusion - Consider 2 units of PRBC Hypoalbuminemia - Albumin of 1.5--> now 1.3 - Dietary consult for protein wasting syndrome Hypomagnesemia - Mg 1.7 - 2/2 inadequate intake - Replete and monitor Chronic: Pancreatic Cancer Weight Loss Plan: He is clinically stable Routine AM Labs Continue PT/OT Dietary Consult GS consulted for paracentesis SW/CM for d/c planning Code Status:1
[2017-10-09] MEDS ORDERED: Magnesium Oxide 400 MG Tab PO ONE (09:00)
[2017-10-09] MEDS ORDERED: LUTEIN 10 MG PO SCH (09:00)
[2017-10-09] MEDS: Saccharomyces Boulardii (Probiotic) 250 MG Cap PO SCH ×2 (09:03→22:08)
[2017-10-09] MEDS: Multivitamins,Therapeutic Tab PO SCH (09:04)
[2017-10-09] MEDS: Vitamin B Complex With Vitamin C Cap PO SCH (09:04)
--- NOTE | 2017-10-09 09:10 | CT ---
CT abdomen and pelvis Technique: Multiple axial sections were obtained from above the dome of the diaphragm inferiorly through the pubic symphysis. Intravenous and oral contrast not utilized. Lack of contrast diminishes details of the exam. Comparison: No previous study. Findings: Small right sided pleural effusion is seen. Right basilar atelectasis is seen. Parenchymal density within the left base possibly due to atelectasis or scarring. Difficult to exclude pulmonary nodules within the left base. Multiple low-density lesions are seen throughout the right and left lobes of the liver. Mild intrahepatic biliary air is seen. TIPS stent is present. Moderate ascites is identified throughout the abdomen and pelvis. Spleen size is mildly enlarged. Adrenal glands show no nodule. Kidneys show no hydronephrosis or calcifications. Aorta shows no aneurysmal dilatation. No retroperitoneal adenopathy or mesenteric abnormalities are seen. No pelvic mass or adenopathy is identified. Bone window settings show disc space narrowing at L5-S1. Mild scattered endplate osteophytes are seen. Impression: 1. Multiple low-density lesions within the right and left lobes of the liver. Uncertain if this represents polycystic liver disease or could represent necrotic liver metastasis. Ultrasound recommended to further evaluate. 2. Small right sided pleural effusion and moderate ascites within the abdomen. 3. TIPS stent is present. Splenomegaly. 4. Parenchymal densities within the left base with differential including nodules, scarring as well as atelectasis. 5. Other incidental findings. Diagnostic code #[address] Floyd Adames and nurse at 0903 on 10/09/17 (left message/will confirm)
--- NOTE | 2017-10-09 09:12 | CR ---
Abdominal series: Frontal view of the chest was obtained as well as supine and upright views of the abdomen. Comparison: No previous study. TIPS stent is present. Bowel gas pattern appears normal. Heart size and mediastinum are normal. Linear density is seen within the left midlung most likely due to scarring. Right-sided PICC line is seen with tip lying at the right atrial and superior vena cava junction. Probable small pleural effusions are present. Bony structures are unremarkable for the patient's age. Impression: 1. Probable small bilateral pleural effusions. 2. Scarring is felt to be present within the left midlung. 3. Right-sided PICC line. 4. Other incidental findings. Diagnostic code #3
--- NOTE | 2017-10-09 10:22 | PCM.CONSN ---
- General Info Date of Service: 10/09/17 - Patient Data Vitals - Most Recent: Last Vital Signs Temp 98.8 F 10/08/17 20:12 Pulse 97 10/08/17 20:12 Resp 19 10/08/17 20:12 BP 119/67 10/08/17 20:12 Pulse Ox 100 10/08/17 20:12 Weight - Most Recent: 83.659 kg Lab Results Last 24 Hours: Laboratory Results - last 24 hr 10/09/17 10/09/17 Range/Units 06:15 06:15 WBC 13.34 H (4.23-9.07) K/mm3 RBC 2.78 L (4.63-6.08) M/mm3 Hgb 8.0 L (13.7-17.5) gm/L Hct 25.3 L (40.1-51.0) % MCV 91.0 (79.0-92.2) fl MCH 28.8 (25.7-32.2) pg MCHC 31.6 L (32.2-35.5) g/dl RDW Std Deviation 72.2 H (35.1-43.9) fL Plt Count 102 L (163-337) K/mm3 MPV 12.4 H (9.4-12.3) fl Neut % (Auto) 97.0 H (34.0-67.9) % Lymph % (Auto) 1.1 L (21.8-53.1) % [place] % (Auto) 0.2 L (5.3-12.2) % Eos % (Auto) 1.6 (0.8-7.0) Baso % (Auto) 0.0 L (0.1-1.2) % Neut # (Auto) 12.92 H (1.78-5.38) K/mm3 Lymph # (Auto) 0.15 L (1.32-3.57) K/mm3 [place] # (Auto) 0.03 L (0.30-0.82) K/mm3 Eos # (Auto) 0.22 (0.04-0.54) K/mm3 Baso # (Auto) 0.00 L (0.01-0.08) K/mm3 Manual Slide Review Abnormal smear Sodium 132 L (136-145) mEq/L Potassium 4.5 (3.5-5.1) mEq/L Chloride 101 (98-107) mEq/L Carbon Dioxide 24 (21-32) mEq/L Anion Gap 11.5 (5-15) BUN 35 H (7-18) mg/dL Creatinine 0.9 (0.7-1.3) mg/dL Est Cr Clr Drug Dosing 97.00 mL/min Estimated GFR (MDRD) > 60 (>60) mL/min BUN/Creatinine Ratio 38.9 H (14-18) Glucose 157 H (74-106) mg/dL Calcium 8.4 L (8.5-10.1) mg/dL Magnesium 1.7 L (1.8-2.4) mg/dl Total Bilirubin 2.0 H (0.2-1.0) mg/dL AST 100 H (15-37) U/L ALT 95 H (16-63) U/L Alkaline Phosphatase 873 H (46-116) U/L C-Reactive Protein 31.4 H* (<1.0) mg/dL Total Protein 4.9 L (6.4-8.2) g/dl Albumin 1.3 L (3.4-5.0) g/dl Globulin 3.6 gm/dL Albumin/Globulin Ratio 0.4 L (1-2) Med Orders - Current: Current Medications Acetaminophen (Tylenol) 650 mg PO Q4H PRN PRN Reason: Pain (Mild 1-3)/fever Albuterol/Ipratropium (Duoneb 3.0-0.5 Mg/3 Ml) 3 ml NEB Q4H PRN PRN Reason: Shortness Of Breath/wheezing Furosemide (Lasix) 20 mg PO BIDDIURETIC [facility] Last Admin: 10/09/17 05:26 Dose: 20 mg Hydralazine HCl (Apresoline) 20 mg IVPUSH Q4H PRN PRN Reason: Hypertension Hydromorphone HCl (Dilaudid) 0.5 mg IVPUSH Q2H PRN PRN Reason: Pain (severe 7-10) Promethazine HCl 12.5 mg/ (Sodium Chloride) 50.5 mls @ 100 mls/hr IV Q6H PRN PRN Reason: Nausea/Vomiting Cefotaxime Sodium 2 gm/ Sodium (Chloride) 50 mls @ 100 mls/hr IV Q8H [facility] Last Admin: 10/09/17 05:25 Dose: 100 mls/hr Vancomycin HCl 1.25 gm/ Sodium (Chloride) 250 mls @ 166.512 mls/hr IV Q8H [facility] Last Admin: 10/09/17 09:05 Dose: 166.512 mls/hr Lorazepam (Ativan) 2 mg IVPUSH Q4H PRN PRN Reason: Seizures Lorazepam (Ativan) 1 mg IV Q6H PRN PRN Reason: Anxiety Magnesium Sulfate (Pharmacy To Dose - Magnesium Replacement) 0 dose .XX ASDIRECTED PRN PRN Reason: RX TO WATCH MAG LEVELS Metoprolol Tartrate (Lopressor) 5 mg IVPUSH Q4H PRN PRN Reason: Tachycardia Multivitamins (Thera) 1 each PO DAILY [facility] Last Admin: 10/09/17 09:04 Dose: 1 each Ondansetron HCl (Zofran) 4 mg IV Q6H PRN PRN Reason: Nausea/Vomiting Oxycodone HCl (Oxycodone) 5 mg PO Q4H PRN PRN Reason: Pain (moderate 4-6) Potassium Chloride (Pharmacy To Dose - Potassium Replacement) 0 dose .XX ASDIRECTED PRN PRN Reason: RX TO WATCH K LEVELS Saccharomyces Boulardii (Florastor) 250 mg PO BID [facility] Last Admin: 10/09/17 09:03 Dose: 250 mg Sodium Chloride (Saline Flush) 10 ml FLUSH ASDIRECTED PRN PRN Reason: Keep Vein Open Last Admin: 10/08/17 15:19 Dose: 10 ml Temazepam (Restoril) 15 mg PO BEDTIME PRN PRN Reason: Sleep Last Admin: 10/08/17 22:57 Dose: 15 mg Vancomycin HCl (Pharmacy To Dose - Vancomycin) 0 dose .XX ASDIRECTED PRN PRN Reason: RX TO DOSE VANCOMYCIN Vitamin B Complex/Vitamin C (Super B With Vitamin C) 1 cap PO DAILY [facility] Last Admin: 10/09/17 09:04 Dose: 1 cap Discontinued Medications Fentanyl (Duragesic) 12 mcg TRDERM Q72H [facility] Last Admin: 10/08/17 23:07 Dose: Not Given Hydromorphone HCl (Dilaudid) 0.5 mg IVPUSH ONETIME ONE Stop: 10/08/17 14:45 Last Admin: 10/08/17 15:19 Dose: 0.5 mg Hydromorphone HCl (Dilaudid) 0.25 mg IVPUSH Q2H PRN PRN Reason: Pain (severe 7-10) Sodium Chloride (Normal Saline) 1,000 mls @ 150 mls/hr IV ASDIRECTED [facility] Cefepime HCl 2 gm/ Premix 50 mls @ 100 mls/hr IV ONETIME ONE Stop: 10/08/17 18:40 Last Admin: 10/08/17 18:41 Dose: 100 mls/hr Vancomycin HCl 2 gm/ Sodium (Chloride) 250 mls @ 250 mls/hr IV ONETIME ONE Stop: 10/08/17 19:10 Last Admin: 10/08/17 19:04 Dose: Not Given Vancomycin HCl 2 gm/ Sodium (Chloride) 250 mls @ 250 mls/hr IV ONETIME ONE Stop: 10/08/17 19:25 Last Admin: 10/08/17 19:04 Dose: Not Given Sodium Chloride (Normal Saline) Confirm Administered Dose 250 mls @ as directed .ROUTE .STK-MED ONE Stop: 10/08/17 18:51 Last Admin: 10/08/17 19:03 Dose: Not Given Vancomycin HCl 2 gm/ Sodium (Chloride) 250 mls @ 250 mls/hr IV ONETIME ONE Stop: 10/08/17 19:59 Last Admin: 10/08/17 19:17 Dose: 250 mls/hr Vancomycin HCl 1.25 gm/ Sodium (Chloride) 500 mls @ 333 mls/hr IV Q8H [facility] Lidocaine/Epinephrine (Xylocaine 1% With Epinephrine 1:100,000) 20 ml INJECT ONETIME ONE Stop: 10/08/17 17:15 Last Admin: 10/08/17 19:22 Dose: Not Given Lidocaine/Epinephrine (Xylocaine 1% With Epinephrine 1:100,000) 20 ml INJECT ONETIME ONE Stop: 10/08/17 17:16 Last Admin: 10/08/17 19:22 Dose: Not Given Lorazepam (Ativan) 0.5 mg IVPUSH ONETIME ONE PRN Reason: Protocol Stop: 10/08/17 21:42 Last Admin: 10/08/17 23:07 Dose: Not Given Magnesium Oxide (Magnesium Oxide) 800 mg PO ONETIME ONE Stop: 10/09/17 09:01 Last Admin: 10/09/17 09:04 Dose: 800 mg Miscellaneous Information (Remove Patch) 1 ea TRDERM Q72H [facility] Last Admin: 10/08/17 23:08 Dose: Not Given Non-Formulary Medication (Lutein) 10 mg PO DAILY [facility] Ondansetron HCl (Zofran) 4 mg IVPUSH ONETIME ONE Stop: 10/08/17 14:45 Last Admin: 10/08/17 15:19 Dose: 4 mg Consult PN Assessment/Plan Problem List Initiated/Reviewed/Updated: Yes Plan: surgical consult dictated RADHA
[2017-10-09] MEDS: HYDROmorphone 0.5 MG/0.5 ML SYRINGE IVPUSH PRN ×2 (11:04→22:08)
[2017-10-09] MEDS ORDERED: diphenhydrAMINE 50 MG/ML SDV IV ONE ×2 (11:28→14:00)
[2017-10-09] MEDS ORDERED: Dexamethasone 4 MG/ML SDV IVPUSH ONE ×2 (11:28→14:00)
[2017-10-09] MEDS ORDERED: Furosemide 100 MG in Sodium Chloride 0.9% 90 ML IV SCH (12:00)
[2017-10-09] MEDS: Sodium Chloride 0.9% 250 ML IV SCH ×2 (14:47→17:54)
[2017-10-09] MEDS: Temazepam 15 MG Cap PO PRN (22:08)
[2017-10-10] MEDS ORDERED: Magnesium Hydroxide 400 MG/5 ML Susp 30 ML Cup PO ONE (05:00)
[2017-10-10] MEDS: Cefotaxime 2 GM in Sodium Chloride 0.9% 50 ML IV SCH (05:03)
--- NOTE | 2017-10-10 06:47 | CONS ---
CONSULTING PHYSICIAN: Flaco España MD DATE OF CONSULTATION: 10/09/2017 HISTORY OF PRESENT ILLNESS: A 61-year-old male who has ascites and pancreatic cancer. I was asked to see. His cancer was diagnosed in May 2016 and he has had chemotherapy and was supposed to have it around, starting this past week and he has had 5 weeks of radiation past March. His current problem is that of abdominal distention and pain. He was scheduled to have a paracentesis in [place] on Monday, but felt he could not make it and came in to the emergency room where he was admitted. His white count was 20,000 and he had grown out gram-positive cocci from his blood, it was felt to be septic, although his lactic acid was 1.5 and a C-reactive protein was 31. The patient has been placed on antibiotics and since that time, he reports that his abdominal pain has improved. He has been on vancomycin. A CT scan was done showing moderate abdominal ascites with a tip stent in place and a PICC line in place. The patient gives further history, earlier this month of having a septic process, felt to be due to his Port-A- Cath. This port was removed and he was placed on 2 weeks of antibiotics. This care was given in [place]. The patient also reports that he has had 2 thoracenteses, one on the th of this month and 13th of this month and he noticed a little redness around the abdomen and this seemed to increase and he has had a red erythematous, erysipelas-like rash over the abdomen. The patient states that after the thoracentesis, there is no leaking whatsoever. ALLERGIES: No known allergies. MEDICATIONS: Per medication reconciliation. PAST MEDICAL HISTORY: Anemia and pancreatic cancer diagnosed 2016, status post chemotherapy and radiation. SOCIAL HISTORY: Never smoked. No alcohol use. REVIEW OF SYSTEMS: No chest pain or shortness of breath, cough, hoarseness, wheezing, fainting, weakness, numbness, or convulsions. Does have abdominal distention and some pain in that area, which seems to be improving. PHYSICAL EXAMINATION: VITAL SIGNS: Reveals a temperature 37. EYES: Sclerae are white. Extraocular muscle motion normal. MOUTH: Oral cavity healthy mucous membranes. NECK: Supple. No nodes. No thyromegaly. LUNGS: Shows decreased breath sounds. ABDOMEN: Distended with an erysipelas-like rash over the right lower quadrant where a paracentesis was done extending up the abdomen and some on the left. Mild tenderness on palpation, but no localizing tenderness. The abdomen is distended but not tense. LOWER EXTREMITIES: Shows some edema. SKIN: Warm and dry. NEUROLOGIC: Pulses are present and moves all 4 extremities. ASSESSMENT: 1. Ascites secondary to pancreatic cancer, remote history, that is last month of septic process, felt to be due to a port, treated with antibiotics. 2. History of anemia with hemoglobin 8.0, platelet count normal. White count 20,000. Septic process felt to be due to probably a primary peritonitis. It is improving with antibiotics, would not at this moment recommend tapping. He is not having any respiratory problems and he is improving with antibiotic treatment, would continue. 3. I also feel that pushing the needle through what possibly may be mild cellulitis over the abdominal wall would not be helpful at this time. MMODAL /[id number]
--- NOTE | 2017-10-10 07:18 | PCM.PN ---
- General Info Date of Service: 10/10/17 Admission Dx/Problem (Free Text): Admission Diagnosis/Problem Admission Diagnosis/Problem Cellulitis Subjective Update: Follow Up Functional Status: Reports: Pain Controlled, Tolerating Diet, Ambulating, Urinating, New Symptoms - Review of Systems General: Reports: Fatigue. Denies: Fever, Weakness, Malaise, Chills HEENT: Reports: No Symptoms Pulmonary: Denies: Shortness of Breath Cardiovascular: Denies: Chest Pain, Dyspnea on Exertion Gastrointestinal: Reports: Constipation, Flatus. Denies: Abdominal Pain, Difficulty Swallowing, Nausea, Vomiting Genitourinary: Reports: No Symptoms Musculoskeletal: Reports: No Symptoms Skin: Denies: Cyanosis, Jaundice, Mottled, Pallor, Diaphoresis Neurological: Denies: Confusion, Pre-Existing Deficit, Difficulty Walking, Weakness, Gait Disturbance Psychiatric: Denies: Depression, Anxiety, Agitation, Hallucinations Systems Review Comment:: No significant overnight or acute issues. He slept really good. He feels and look much better. He reports no bowel movement since Monday. So far he lost ~ 3kg per e-records. He has no new complaints. - Patient Data Vitals - Most Recent: Last Vital Signs Temp 37.3 C 10/10/17 04:09 Pulse 89 10/10/17 04:09 Resp 16 10/10/17 04:09 BP 131/74 10/10/17 04:09 Pulse Ox 93 L 10/10/17 04:09 Weight - Most Recent: 85.321 kg I&O - Last 24 Hours: Intake & Output 10/09/17 10/10/17 10/10/17 22:59 06:59 14:59 Intake Total 2296 852 Output Total 950 1450 Balance 1346 -598 Lab Results Last 24 Hours: Laboratory Results - last 24 hr 10/09/17 10/09/17 10/09/17 Range/Units 06:15 06:15 11:45 WBC (4.23-9.07) K/mm3 RBC (4.63-6.08) M/mm3 Hgb (13.7-17.5) gm/L Hct (40.1-51.0) % MCV (79.0-92.2) fl MCH (25.7-32.2) pg MCHC (32.2-35.5) g/dl RDW Std Deviation (35.1-43.9) fL Plt Count (163-337) K/mm3 MPV (9.4-12.3) fl Neut % (Auto) (34.0-67.9) % Lymph % (Auto) (21.8-53.1) % [place] % (Auto) (5.3-12.2) % Eos % (Auto) (0.8-7.0) Baso % (Auto) (0.1-1.2) % Neut # (Auto) (1.78-5.38) K/mm3 Lymph # (Auto) (1.32-3.57) K/mm3 [place] # (Auto) (0.30-0.82) K/mm3 Eos # (Auto) (0.04-0.54) K/mm3 Baso # (Auto) (0.01-0.08) K/mm3 Manual Slide Review Abnormal smear C-Reactive Protein 31.4 H* (<1.0) mg/dL Vancomycin Trough (10.0-20.0) Blood Type A NEGATIVE Gel Antibody Screen Negative Crossmatch See Detail 10/09/17 10/10/17 Range/Units 21:30 06:20 WBC 9.67 H (4.23-9.07) K/mm3 RBC 3.50 L (4.63-6.08) M/mm3 Hgb 10.1 L (13.7-17.5) gm/L Hct 30.7 L (40.1-51.0) % MCV 87.7 (79.0-92.2) fl MCH 28.9 (25.7-32.2) pg MCHC 32.9 (32.2-35.5) g/dl RDW Std Deviation 65.4 H (35.1-43.9) fL Plt Count 89 L (163-337) K/mm3 MPV 11.9 (9.4-12.3) fl Neut % (Auto) 97.1 H (34.0-67.9) % Lymph % (Auto) 1.3 L (21.8-53.1) % [place] % (Auto) 0.5 L (5.3-12.2) % Eos % (Auto) 0 L (0.8-7.0) Baso % (Auto) 0.0 L (0.1-1.2) % Neut # (Auto) 9.38 H (1.78-5.38) K/mm3 Lymph # (Auto) 0.13 L (1.32-3.57) K/mm3 [place] # (Auto) 0.05 L (0.30-0.82) K/mm3 Eos # (Auto) 0.00 L (0.04-0.54) K/mm3 Baso # (Auto) 0.00 L (0.01-0.08) K/mm3 Manual Slide Review C-Reactive Protein (<1.0) mg/dL Vancomycin Trough 24.3 H (10.0-20.0) Blood Type Gel Antibody Screen Crossmatch Med Orders - Current: Current Medications Acetaminophen (Tylenol) 650 mg PO Q4H PRN PRN Reason: Pain (Mild 1-3)/fever Albuterol/Ipratropium (Duoneb 3.0-0.5 Mg/3 Ml) 3 ml NEB Q4H PRN PRN Reason: Shortness Of Breath/wheezing Hydralazine HCl (Apresoline) 20 mg IVPUSH Q4H PRN PRN Reason: Hypertension Hydromorphone HCl (Dilaudid) 0.5 mg IVPUSH Q2H PRN PRN Reason: Pain (severe 7-10) Last Admin: 10/09/17 22:08 Dose: 0.5 mg Promethazine HCl 12.5 mg/ (Sodium Chloride) 50.5 mls @ 100 mls/hr IV Q6H PRN PRN Reason: Nausea/Vomiting Cefotaxime Sodium 2 gm/ Sodium (Chloride) 50 mls @ 100 mls/hr IV Q8H [facility] Last Admin: 10/10/17 05:03 Dose: 100 mls/hr Furosemide 100 mg/ Sodium (Chloride) 100 mls @ 4 mls/hr IV TITRATE [facility] PRN Reason: Protocol Last Admin: 10/09/17 12:47 Dose: 4 mls/hr Vancomycin HCl 1.25 gm/ Sodium (Chloride) 250 mls @ 166.512 mls/hr IV Q12H [facility] Last Admin: 10/10/17 04:21 Dose: 166.512 mls/hr Lorazepam (Ativan) 2 mg IVPUSH Q4H PRN PRN Reason: Seizures Lorazepam (Ativan) 1 mg IV Q6H PRN PRN Reason: Anxiety Magnesium Sulfate (Pharmacy To Dose - Magnesium Replacement) 0 dose .XX ASDIRECTED PRN PRN Reason: RX TO WATCH MAG LEVELS Metoprolol Tartrate (Lopressor) 5 mg IVPUSH Q4H PRN PRN Reason: Tachycardia Multivitamins (Thera) 1 each PO DAILY [facility] Last Admin: 10/09/17 09:04 Dose: 1 each Ondansetron HCl (Zofran) 4 mg IV Q6H PRN PRN Reason: Nausea/Vomiting Oxycodone HCl (Oxycodone) 5 mg PO Q4H PRN PRN Reason: Pain (moderate 4-6) Potassium Chloride (Pharmacy To Dose - Potassium Replacement) 0 dose .XX ASDIRECTED PRN PRN Reason: RX TO WATCH K LEVELS Saccharomyces Boulardii (Florastor) 250 mg PO BID [facility] Last Admin: 10/09/17 22:08 Dose: 250 mg Sodium Chloride (Saline Flush) 10 ml FLUSH ASDIRECTED PRN PRN Reason: Keep Vein Open Last Admin: 10/08/17 15:19 Dose: 10 ml Temazepam (Restoril) 15 mg PO BEDTIME PRN PRN Reason: Sleep Last Admin: 10/09/17 22:08 Dose: 15 mg Vancomycin HCl (Pharmacy To Dose - Vancomycin) 0 dose .XX ASDIRECTED PRN PRN Reason: RX TO DOSE VANCOMYCIN Vitamin B Complex/Vitamin C (Super B With Vitamin C) 1 cap PO DAILY [facility] Last Admin: 10/09/17 09:04 Dose: 1 cap Discontinued Medications Dexamethasone (Dexamethasone) 4 mg IVPUSH ONETIME ONE Stop: 10/09/17 14:01 Last Admin: 10/09/17 13:58 Dose: 4 mg Diphenhydramine HCl (Benadryl) 25 mg IV ONETIME ONE Stop: 10/09/17 14:01 Last Admin: 10/09/17 14:02 Dose: 25 mg Fentanyl (Duragesic) 12 mcg TRDERM Q72H [facility] Last Admin: 10/08/17 23:07 Dose: Not Given Furosemide (Lasix) 20 mg PO BIDDIURETIC [facility] Last Admin: 10/09/17 05:26 Dose: 20 mg Hydromorphone HCl (Dilaudid) 0.5 mg IVPUSH ONETIME ONE Stop: 10/08/17 14:45 Last Admin: 10/08/17 15:19 Dose: 0.5 mg Hydromorphone HCl (Dilaudid) 0.25 mg IVPUSH Q2H PRN PRN Reason: Pain (severe 7-10) Sodium Chloride (Normal Saline) 1,000 mls @ 150 mls/hr IV ASDIRECTED [facility] Cefepime HCl 2 gm/ Premix 50 mls @ 100 mls/hr IV ONETIME ONE Stop: 10/08/17 18:40 Last Admin: 10/08/17 18:41 Dose: 100 mls/hr Vancomycin HCl 2 gm/ Sodium (Chloride) 250 mls @ 250 mls/hr IV ONETIME ONE Stop: 10/08/17 19:10 Last Admin: 10/08/17 19:04 Dose: Not Given Vancomycin HCl 2 gm/ Sodium (Chloride) 250 mls @ 250 mls/hr IV ONETIME ONE Stop: 10/08/17 19:25 Last Admin: 10/08/17 19:04 Dose: Not Given Sodium Chloride (Normal Saline) Confirm Administered Dose 250 mls @ as directed .ROUTE .STK-MED ONE Stop: 10/08/17 18:51 Last Admin: 10/08/17 19:03 Dose: Not Given Vancomycin HCl 2 gm/ Sodium (Chloride) 250 mls @ 250 mls/hr IV ONETIME ONE Stop: 10/08/17 19:59 Last Admin: 10/08/17 19:17 Dose: 250 mls/hr Vancomycin HCl 1.25 gm/ Sodium (Chloride) 500 mls @ 333 mls/hr IV Q8H [facility] Last Admin: 10/09/17 14:06 Dose: Not Given Vancomycin HCl 1.25 gm/ Sodium (Chloride) 250 mls @ 166.512 mls/hr IV Q8H [facility] Last Admin: 10/09/17 17:46 Dose: 166.512 mls/hr Sodium Chloride (Normal Saline) 250 mls @ 250 mls/hr IV ASDIRECTED [facility] Stop: 10/09/17 18:00 Last Admin: 10/09/17 17:54 Dose: 250 mls/hr Lidocaine/Epinephrine (Xylocaine 1% With Epinephrine 1:100,000) 20 ml INJECT ONETIME ONE Stop: 10/08/17 17:15 Last Admin: 10/08/17 19:22 Dose: Not Given Lidocaine/Epinephrine (Xylocaine 1% With Epinephrine 1:100,000) 20 ml INJECT ONETIME ONE Stop: 10/08/17 17:16 Last Admin: 10/08/17 19:22 Dose: Not Given Lorazepam (Ativan) 0.5 mg IVPUSH ONETIME ONE PRN Reason: Protocol Stop: 10/08/17 21:42 Last Admin: 10/08/17 23:07 Dose: Not Given Magnesium Hydroxide (Milk Of Magnesia) 30 ml PO ONETIME ONE Stop: 10/10/17 05:01 Last Admin: 10/10/17 04:18 Dose: 30 ml Magnesium Oxide (Magnesium Oxide) 800 mg PO ONETIME ONE Stop: 10/09/17 09:01 Last Admin: 10/09/17 09:04 Dose: 800 mg Miscellaneous Information (Remove Patch) 1 ea TRDERM Q72H [facility] Last Admin: 10/08/17 23:08 Dose: Not Given Non-Formulary Medication (Lutein) 10 mg PO DAILY [facility] Ondansetron HCl (Zofran) 4 mg IVPUSH ONETIME ONE Stop: 10/08/17 14:45 Last Admin: 10/08/17 15:19 Dose: 4 mg - Exam General: Alert, Oriented, Cooperative, No Acute Distress, Other (emaciated) HEENT: Pupils Equal, Pupils Reactive, EOMI, Mucous Membr. Moist/[place], Other ( bitemproal wasting) Neck: Supple, Trachea Midline, No JVD Lungs: Normal Respiratory Effort, Decreased Breath Sounds Cardiovascular: Regular Rate, Regular Rhythm GI/Abdominal Exam: Normal Bowel Sounds, Soft (now), No Organomegaly, No Abnormal Bruit, Distended (but not tight), Hepatomegaly, Other (abdominal erythema greatly improved). No: Guarding, Rigid, Rebound (Male) Exam: Deferred Back Exam: Normal Inspection, Decreased Range of Motion Extremities: Normal Inspection, Normal Range of Motion, Non-Tender, Pedal Edema , Other (significant bilateral peripheral edema 3-4+) Peripheral Pulses: 2+: Dorsalis Pedis (L), Dorsalis Pedis (R) Skin: Warm, Dry, Intact Neurological: No New Focal Deficit Psy/Mental Status: Alert, Normal Affect, Normal Mood - Problem List Review Problem List Initiated/Reviewed/Updated: Yes - My Orders Last 24 Hours: My Active Orders 10/09/17 07:46 Consult to Dietary [Consult to Certified Orthotist] [CONS] Routine 10/09/17 09:00 Multivitamins,Therapeutic [Thera] 1 each PO DAILY Saccharomyces Boulardii [Florastor] 250 mg PO BID Vitamin B Complex with C [Super B With Vitamin C] 1 cap PO DAILY 10/09/17 09:26 HYDROmorphone [Dilaudid] 0.5 mg IVPUSH Q2H PRN 10/09/17 11:28 Transfuse PRBC [Transfuse Red Blood Cells] [COMM] Routine Transfuse Red Blood Cells [COMM] Routine 10/09/17 12:00 Furosemide [Lasix] 100 mg Sodium Chloride 0.9% [Normal Saline] 90 ml IV TITRATE 10/10/17 04:00 Vancomycin 1.25 gm Sodium Chloride 0.9% [Normal Saline] 250 ml IV Q12H 10/10/17 06:20 C-REACTIVE PROTEIN [CHEM] AM CBC WITH AUTO DIFF [HEME] AM COMPREHENSIVE METABOLIC PN,CMP [CHEM] AM MAGNESIUM [CHEM] AM 10/11/17 05:11 C-REACTIVE PROTEIN [CHEM] AM CBC WITH AUTO DIFF [HEME] AM COMPREHENSIVE METABOLIC PN,CMP [CHEM] AM MAGNESIUM [CHEM] AM 10/12/17 05:11 C-REACTIVE PROTEIN [CHEM] AM CBC WITH AUTO DIFF [HEME] AM COMPREHENSIVE METABOLIC PN,CMP [CHEM] AM MAGNESIUM [CHEM] AM - Plan Plan:: Assessment/Plan: Acute: Bacteremia - 1/4 bottle GPC in Pairs - Cannot r/o contamination - Has PICC line as possible source - Repeat blood culture in the afternoon Abdominal Ascites and Edema, Improved - 2/2 Pancreatic Cancer - Abdominal CT scan report reads multiple low density lesions within the right and left lobes of the liver ; necrotic liver metastasis versus polycystic liver disease. Small right-sided per effusion and moderate ascites within the abdomen - Dr. España consult for paracentesis; recommended against it - PRN and Scheduled Pain Medications - D/c lasix drip at noon; will continue him on loop diuretic BID SSTI/Erysipelas, continues to improve - WBC 19.5 --> 31.4 --> 18.9 - Around his abdomen, improved - High Risk for SBP; at this point I do not feel he has bacterial peritonitis - Continue Vancomycin 1 violeta BID for pharmacy to dose; Vancomycin Trough 24.3 level - Recommend Quinolone prophylaxis after discharge - Monitor response Pancytopenia - 2/2 Underlying Malignancy - Hgb is 8.8; no baseline--> 8.0--> no 10.1 S/p 2 units of PRBC - He now feels better but still weak Hypoalbuminemia - Albumin of 1.5--> 1.3--> now 1.4 - He has adequate protein intake - Dietary consult for protein wasting syndrome Hypomagnesemia - Mg 1.7 - 2/2 inadequate intake - Replete and monitor Chronic: Pancreatic Cancer Weight Loss Plan: He remains clinically stable Routine AM Labs Continue PT/OT Dietary Consult GS consulted for paracentesis SW/CM for d/c planning Code Status:1 Overall prognosis is poor with pancreatic cancer. LOS anticipate > 96 hrs pending result of repeat blood cultures
[2017-10-10] MEDS: Vitamin B Complex With Vitamin C Cap PO SCH (08:04)
[2017-10-10] MEDS: Multivitamins,Therapeutic Tab PO SCH (08:04)
[2017-10-10] MEDS: Saccharomyces Boulardii (Probiotic) 250 MG Cap PO SCH ×2 (08:04→20:54)
[2017-10-10] MEDS ORDERED: Magnesium Sulfate/Water 2 GM in Premix Bag 1 BAG IV ONE (09:00)
[2017-10-10] MEDS ORDERED: Bumetanide 1 MG/4 ML MDV IVPUSH ONE (13:50)
[2017-10-10] MEDS ORDERED: Bisacodyl 10 MG Supp RECTAL PRN (13:52)
[2017-10-10] MEDS ORDERED: Lactulose Soln 10 GM/15 ML 30 ML UD Cup PO SCH (14:00)
[2017-10-10] MEDS: Hydrochlorothiazide 12.5 MG Cap PO SCH (17:28)
[2017-10-10] MEDS: HYDROmorphone 0.5 MG/0.5 ML SYRINGE IVPUSH PRN (20:54)
[2017-10-10] MEDS: Temazepam 15 MG Cap PO PRN (22:12)
[2017-10-11] MEDS: Hydrochlorothiazide 12.5 MG Cap PO SCH ×2 (05:00→13:48)
[2017-10-11] MEDS: Vitamin B Complex With Vitamin C Cap PO SCH (08:49)
[2017-10-11] MEDS: Multivitamins,Therapeutic Tab PO SCH (08:49)
[2017-10-11] MEDS: Saccharomyces Boulardii (Probiotic) 250 MG Cap PO SCH ×2 (08:49→21:56)
--- NOTE | 2017-10-11 08:51 | PCM.PN ---
- General Info Date of Service: 10/11/17 Admission Dx/Problem (Free Text): Admission Diagnosis/Problem Admission Diagnosis/Problem Cellulitis Subjective Update: Follow Up Functional Status: Reports: Pain Controlled, Tolerating Diet, Ambulating, Urinating. Denies: New Symptoms - Review of Systems General: Denies: Fever, Weakness, Fatigue, Malaise, Chills HEENT: Reports: No Symptoms Pulmonary: Denies: Shortness of Breath Cardiovascular: Denies: Chest Pain Gastrointestinal: Reports: Decreased Appetite. Denies: Abdominal Pain, Nausea, Vomiting Genitourinary: Reports: No Symptoms Musculoskeletal: Reports: No Symptoms Skin: Reports: No Symptoms Neurological: Reports: Weakness. Denies: Confusion, Difficulty Walking, Gait Disturbance Psychiatric: Denies: Depression, Anxiety, Agitation, Hallucinations Systems Review Comment:: No significant overnight or acute issues. He slept pretty good. His pain is controlled. He has no new complaints. - Patient Data Vitals - Most Recent: Last Vital Signs Temp 36.7 C 10/11/17 08:14 Pulse 94 10/11/17 08:14 Resp 20 10/11/17 08:14 BP 118/76 10/11/17 08:14 Pulse Ox 95 10/11/17 08:14 Weight - Most Recent: 85.774 kg I&O - Last 24 Hours: Intake & Output 10/10/17 10/11/17 10/11/17 22:59 06:59 14:59 Intake Total 2472 1250 Output Total 1250 650 Balance 1222 600 Lab Results Last 24 Hours: Laboratory Results - last 24 hr 10/10/17 10/11/17 10/11/17 Range/Units 06:20 05:47 05:47 WBC 8.04 (4.23-9.07) K/mm3 RBC 3.33 L (4.63-6.08) M/mm3 Hgb 9.4 L (13.7-17.5) gm/L Hct 29.3 L (40.1-51.0) % MCV 88.0 (79.0-92.2) fl MCH 28.2 (25.7-32.2) pg MCHC 32.1 L (32.2-35.5) g/dl RDW Std Deviation 65.6 H (35.1-43.9) fL Plt Count 64 L (163-337) K/mm3 MPV 11.6 (9.4-12.3) fl Neut % (Auto) 95.7 H (34.0-67.9) % Lymph % (Auto) 1.6 L (21.8-53.1) % [place] % (Auto) 1.0 L (5.3-12.2) % Eos % (Auto) 1.2 (0.8-7.0) Baso % (Auto) 0.1 (0.1-1.2) % Neut # (Auto) 7.69 H (1.78-5.38) K/mm3 Lymph # (Auto) 0.13 L (1.32-3.57) K/mm3 [place] # (Auto) 0.08 L (0.30-0.82) K/mm3 Eos # (Auto) 0.10 (0.04-0.54) K/mm3 Baso # (Auto) 0.01 (0.01-0.08) K/mm3 Manual Slide Review Abnormal smear Sodium 132 L (136-145) mEq/L Potassium 3.9 (3.5-5.1) mEq/L Chloride 99 (98-107) mEq/L Carbon Dioxide 24 (21-32) mEq/L Anion Gap 12.9 (5-15) BUN 28 H (7-18) mg/dL Creatinine 0.8 (0.7-1.3) mg/dL Est Cr Clr Drug Dosing 109.13 mL/min Estimated GFR (MDRD) > 60 (>60) mL/min BUN/Creatinine Ratio 35.0 H (14-18) Glucose 136 H (74-106) mg/dL Calcium 8.9 (8.5-10.1) mg/dL Magnesium 1.7 L (1.8-2.4) mg/dl Total Bilirubin 1.7 H (0.2-1.0) mg/dL AST 45 H (15-37) U/L ALT 60 (16-63) U/L Alkaline Phosphatase 855 H (46-116) U/L C-Reactive Protein 18.9 H* 13.3 H* (<1.0) mg/dL Total Protein 5.0 L (6.4-8.2) g/dl Albumin 1.3 L (3.4-5.0) g/dl Globulin 3.7 gm/dL Albumin/Globulin Ratio 0.4 L (1-2) Med Orders - Current: Current Medications Acetaminophen (Tylenol) 650 mg PO Q4H PRN PRN Reason: Pain (Mild 1-3)/fever Last Admin: 10/11/17 04:57 Dose: 650 mg Albuterol/Ipratropium (Duoneb 3.0-0.5 Mg/3 Ml) 3 ml NEB Q4H PRN PRN Reason: Shortness Of Breath/wheezing Bisacodyl (Dulcolax) 10 mg RECTAL BID PRN PRN Reason: Constipation Last Admin: 10/10/17 14:01 Dose: 10 mg Bumetanide (Bumex) 0.5 mg IVPUSH ONETIME ONE Stop: 10/11/17 18:01 Hydralazine HCl (Apresoline) 20 mg IVPUSH Q4H PRN PRN Reason: Hypertension Hydrochlorothiazide (Hydrochlorothiazide) 12.5 mg PO BIDDIURETIC [facility] Last Admin: 10/11/17 05:00 Dose: 12.5 mg Hydromorphone HCl (Dilaudid) 0.5 mg IVPUSH Q2H PRN PRN Reason: Pain (severe 7-10) Last Admin: 10/10/17 20:54 Dose: 0.5 mg Promethazine HCl 12.5 mg/ (Sodium Chloride) 50.5 mls @ 100 mls/hr IV Q6H PRN PRN Reason: Nausea/Vomiting Vancomycin HCl 1.25 gm/ Sodium (Chloride) 250 mls @ 166.512 mls/hr IV Q12H [facility] Last Admin: 10/11/17 05:03 Dose: 166.512 mls/hr Lorazepam (Ativan) 2 mg IVPUSH Q4H PRN PRN Reason: Seizures Lorazepam (Ativan) 1 mg IV Q6H PRN PRN Reason: Anxiety Magnesium Sulfate (Pharmacy To Dose - Magnesium Replacement) 0 dose .XX ASDIRECTED PRN PRN Reason: RX TO WATCH MAG LEVELS Metoprolol Tartrate (Lopressor) 5 mg IVPUSH Q4H PRN PRN Reason: Tachycardia Multivitamins (Thera) 1 each PO DAILY [facility] Last Admin: 10/11/17 08:49 Dose: 1 each Ondansetron HCl (Zofran) 4 mg IV Q6H PRN PRN Reason: Nausea/Vomiting Oxycodone HCl (Oxycodone) 5 mg PO Q4H PRN PRN Reason: Pain (moderate 4-6) Potassium Chloride (Pharmacy To Dose - Potassium Replacement) 0 dose .XX ASDIRECTED PRN PRN Reason: RX TO WATCH K LEVELS Saccharomyces Boulardii (Florastor) 250 mg PO BID [facility] Last Admin: 10/11/17 08:49 Dose: 250 mg Sodium Chloride (Saline Flush) 10 ml FLUSH ASDIRECTED PRN PRN Reason: Keep Vein Open Last Admin: 10/08/17 15:19 Dose: 10 ml Temazepam (Restoril) 15 mg PO BEDTIME PRN PRN Reason: Sleep Last Admin: 10/10/17 22:12 Dose: 15 mg Vancomycin HCl (Pharmacy To Dose - Vancomycin) 0 dose .XX ASDIRECTED PRN PRN Reason: RX TO DOSE VANCOMYCIN Vitamin B Complex/Vitamin C (Super B With Vitamin C) 1 cap PO DAILY [facility] Last Admin: 10/11/17 08:49 Dose: 1 cap Discontinued Medications Bumetanide (Bumex) 0.5 mg IVPUSH ONETIME ONE Stop: 10/10/17 13:51 Last Admin: 10/10/17 15:30 Dose: 0.5 mg Dexamethasone (Dexamethasone) 4 mg IVPUSH ONETIME ONE Stop: 10/09/17 14:01 Last Admin: 10/09/17 13:58 Dose: 4 mg Diphenhydramine HCl (Benadryl) 25 mg IV ONETIME ONE Stop: 10/09/17 14:01 Last Admin: 10/09/17 14:02 Dose: 25 mg Fentanyl (Duragesic) 12 mcg TRDERM Q72H [facility] Last Admin: 10/08/17 23:07 Dose: Not Given Furosemide (Lasix) 20 mg PO BIDDIURETIC [facility] Last Admin: 10/09/17 05:26 Dose: 20 mg Hydromorphone HCl (Dilaudid) 0.5 mg IVPUSH ONETIME ONE Stop: 10/08/17 14:45 Last Admin: 10/08/17 15:19 Dose: 0.5 mg Hydromorphone HCl (Dilaudid) 0.25 mg IVPUSH Q2H PRN PRN Reason: Pain (severe 7-10) Sodium Chloride (Normal Saline) 1,000 mls @ 150 mls/hr IV ASDIRECTED [facility] Cefepime HCl 2 gm/ Premix 50 mls @ 100 mls/hr IV ONETIME ONE Stop: 10/08/17 18:40 Last Admin: 10/08/17 18:41 Dose: 100 mls/hr Vancomycin HCl 2 gm/ Sodium (Chloride) 250 mls @ 250 mls/hr IV ONETIME ONE Stop: 10/08/17 19:10 Last Admin: 10/08/17 19:04 Dose: Not Given Vancomycin HCl 2 gm/ Sodium (Chloride) 250 mls @ 250 mls/hr IV ONETIME ONE Stop: 10/08/17 19:25 Last Admin: 10/08/17 19:04 Dose: Not Given Sodium Chloride (Normal Saline) Confirm Administered Dose 250 mls @ as directed .ROUTE .STK-MED ONE Stop: 10/08/17 18:51 Last Admin: 10/08/17 19:03 Dose: Not Given Vancomycin HCl 2 gm/ Sodium (Chloride) 250 mls @ 250 mls/hr IV ONETIME ONE Stop: 10/08/17 19:59 Last Admin: 10/08/17 19:17 Dose: 250 mls/hr Cefotaxime Sodium 2 gm/ Sodium (Chloride) 50 mls @ 100 mls/hr IV Q8H [facility] Last Admin: 10/10/17 05:03 Dose: 100 mls/hr Vancomycin HCl 1.25 gm/ Sodium (Chloride) 500 mls @ 333 mls/hr IV Q8H [facility] Last Admin: 10/09/17 14:06 Dose: Not Given Vancomycin HCl 1.25 gm/ Sodium (Chloride) 250 mls @ 166.512 mls/hr IV Q8H [facility] Last Admin: 10/09/17 17:46 Dose: 166.512 mls/hr Furosemide 100 mg/ Sodium (Chloride) 100 mls @ 4 mls/hr IV TITRATE [facility] PRN Reason: Protocol Stop: 10/10/17 12:30 Last Admin: 10/09/17 12:47 Dose: 4 mls/hr Sodium Chloride (Normal Saline) 250 mls @ 250 mls/hr IV ASDIRECTED [facility] Stop: 10/09/17 18:00 Last Admin: 10/09/17 17:54 Dose: 250 mls/hr Magnesium Sulfate 2 gm/ Premix 50 mls @ 25 mls/hr IV ONETIME ONE Stop: 10/10/17 10:59 Last Admin: 10/10/17 09:53 Dose: 25 mls/hr Lactulose (Cephulac) 20 gm PO BID [facility] Last Admin: 10/10/17 14:01 Dose: 20 gm Lidocaine/Epinephrine (Xylocaine 1% With Epinephrine 1:100,000) 20 ml INJECT ONETIME ONE Stop: 10/08/17 17:15 Last Admin: 10/08/17 19:22 Dose: Not Given Lidocaine/Epinephrine (Xylocaine 1% With Epinephrine 1:100,000) 20 ml INJECT ONETIME ONE Stop: 10/08/17 17:16 Last Admin: 10/08/17 19:22 Dose: Not Given Lorazepam (Ativan) 0.5 mg IVPUSH ONETIME ONE PRN Reason: Protocol Stop: 10/08/17 21:42 Last Admin: 10/08/17 23:07 Dose: Not Given Magnesium Hydroxide (Milk Of Magnesia) 30 ml PO ONETIME ONE Stop: 10/10/17 05:01 Last Admin: 10/10/17 04:18 Dose: 30 ml Magnesium Oxide (Magnesium Oxide) 800 mg PO ONETIME ONE Stop: 10/09/17 09:01 Last Admin: 10/09/17 09:04 Dose: 800 mg Miscellaneous Information (Remove Patch) 1 ea TRDERM Q72H [facility] Last Admin: 10/08/17 23:08 Dose: Not Given Non-Formulary Medication (Lutein) 10 mg PO DAILY [facility] Ondansetron HCl (Zofran) 4 mg IVPUSH ONETIME ONE Stop: 10/08/17 14:45 Last Admin: 10/08/17 15:19 Dose: 4 mg - Exam General: Other (emaciated). No: Alert, Oriented, Cooperative, No Acute Distress HEENT: Pupils Equal, Pupils Reactive, EOMI, Mucous Membr. Moist/Price Neck: Supple, Trachea Midline, No JVD, No Thyromegaly Lungs: Normal Respiratory Effort, Decreased Breath Sounds Cardiovascular: Regular Rate, Regular Rhythm GI/Abdominal Exam: Normal Bowel Sounds, Soft, Non-Tender, No Organomegaly, No Abnormal Bruit, No Mass, Distended, Hepatomegaly. No: Guarding, Rigid, Rebound (Male) Exam: Deferred Back Exam: Normal Inspection, Decreased Range of Motion Extremities: Normal Inspection, Normal Range of Motion, Non-Tender, No Pedal Edema, Normal Capillary Refill Peripheral Pulses: 2+: Dorsalis Pedis (L), Dorsalis Pedis (R) Skin: Warm, Dry, Intact Neurological: No New Focal Deficit Psy/Mental Status: Alert, Normal Affect, Normal Mood - Problem List Review Problem List Initiated/Reviewed/Updated: Yes - My Orders Last 24 Hours: My Active Orders 10/10/17 13:52 Bisacodyl [Dulcolax] 10 mg RECTAL BID PRN 10/10/17 18:00 Hydrochlorothiazide 12.5 mg PO BIDDIURETIC 10/10/17 18:30 Blood Culture x2 Reflex Set [OM.PC] Stat 10/10/17 18:38 CULTURE BLOOD [BC] Stat 10/10/17 18:48 CULTURE BLOOD [BC] Stat 10/11/17 15:30 VANCOMYCIN TROUGH [CHEM] Timed 10/11/17 18:00 Bumetanide [Bumex] 0.5 mg IVPUSH ONETIME ONE 10/12/17 05:11 C-REACTIVE PROTEIN [CHEM] AM CBC WITH AUTO DIFF [HEME] AM COMPREHENSIVE METABOLIC PN,CMP [CHEM] AM MAGNESIUM [CHEM] AM - Plan Plan:: Assessment/Plan: Acute: Bacteremia - 07/27 bottle pos for Enterococcus Faecalis sensitive to Vancomycin - Continue Vancomycin - Cannot r/o contamination - Has PICC line as possible source - Repeat blood culture is pending so far Abdominal Ascites and Edema, Improved - 2/2 Pancreatic Cancer - Abdominal CT scan report reads multiple low density lesions within the right and left lobes of the liver ; necrotic liver metastasis versus polycystic liver disease. Small right-sided per effusion and moderate ascites within the abdomen - Dr. España consult for paracentesis; recommended against it - PRN and Scheduled Pain Medications - D/c lasix drip at noon; will continue him on loop diuretic BID SSTI/Erysipelas, continues to improve - CRP 19.5 --> 31.34 --> 18.9 --> 13.3 - Erythema around abdomen - High Risk for SBP; at this point I do not feel he has bacterial peritonitis - Continue Vancomycin 1 violeta BID for pharmacy to dose; Vancomycin Trough 24.3 level - Recommend Quinolone prophylaxis after discharge - Monitor response Pancytopenia, Stable - 2/2 Underlying Malignancy - Hgb is 8.8; no baseline--> 8.0--> now 10.1 S/p 2 units of PRBC - He now feels better but still weak Hypoalbuminemia - Albumin of 1.5--> 1.3--> now 1.4 - He has adequate protein intake - Dietary consult for protein wasting syndrome Hypomagnesemia - Mg 1.7--> same - 2/2 inadequate intake - Replete and monitor Generalized Weakness, Improved - 2/2 Above - Continue with ambulation as tolerated - Eat whatever he wants Chronic: Pancreatic Cancer Weight Loss Plan: He remains clinically stable Routine AM Labs Continue PT/OT Dietary Consult GS consulted for paracentesis SW/CM for d/c planning Code Status:1 Overall prognosis is poor with pancreatic cancer. LOS anticipate > 96 hrs pending result of repeat blood cultures
[2017-10-11] MEDS ORDERED: Magnesium Oxide 400 MG Tab PO ONE (15:45)
[2017-10-11] MEDS ORDERED: Bumetanide 1 MG/4 ML MDV IVPUSH ONE (18:00)
[2017-10-11] MEDS: Temazepam 15 MG Cap PO PRN (21:56)
[2017-10-11] MEDS: HYDROmorphone 0.5 MG/0.5 ML SYRINGE IVPUSH PRN (22:04)
[2017-10-12] MEDS: Hydrochlorothiazide 12.5 MG Cap PO SCH ×2 (06:31→13:31)
[2017-10-12] MEDS: Vitamin B Complex With Vitamin C Cap PO SCH (08:20)
[2017-10-12] MEDS: Multivitamins,Therapeutic Tab PO SCH (08:20)
[2017-10-12] MEDS: Saccharomyces Boulardii (Probiotic) 250 MG Cap PO SCH ×2 (08:20→20:43)
[2017-10-12] MEDS: Magnesium Oxide 400 MG Tab PO SCH ×2 (09:41→20:43)
[2017-10-12] MEDS: Ampicillin 2 GM in Sodium Chloride 0.9% 100 ML IV SCH ×2 (13:31→18:16)
--- NOTE | 2017-10-12 13:46 | PCM.PN ---
- General Info Date of Service: 10/12/17 Functional Status: Reports: Tolerating Diet, Ambulating, Urinating - Review of Systems General: Reports: Weakness HEENT: Reports: No Symptoms Pulmonary: Reports: No Symptoms Cardiovascular: Reports: No Symptoms Gastrointestinal: Reports: No Symptoms Genitourinary: Reports: No Symptoms Musculoskeletal: Reports: No Symptoms Skin: Reports: No Symptoms Neurological: Reports: No Symptoms Psychiatric: Reports: No Symptoms - Patient Data Vitals - Most Recent: Last Vital Signs Temp 36.8 C 10/12/17 09:14 Pulse 82 10/12/17 09:08 Resp 14 10/12/17 09:08 BP 113/70 10/12/17 09:08 Pulse Ox 96 10/12/17 09:08 Weight - Most Recent: 87.044 kg I&O - Last 24 Hours: Intake & Output 10/11/17 10/12/17 10/12/17 22:59 06:59 14:59 Intake Total 3064 200 240 Output Total 550 Balance 2514 200 240 Lab Results Last 24 Hours: Laboratory Results - last 24 hr 10/11/17 10/12/17 10/12/17 Range/Units 16:13 06:30 06:30 WBC 6.07 (4.23-9.07) K/mm3 RBC 3.19 L (4.63-6.08) M/mm3 Hgb 9.1 L (13.7-17.5) gm/L Hct 28.2 L (40.1-51.0) % MCV 88.4 (79.0-92.2) fl MCH 28.5 (25.7-32.2) pg MCHC 32.3 (32.2-35.5) g/dl RDW Std Deviation 64.0 H (35.1-43.9) fL Plt Count 38 L (163-337) K/mm3 Neut % (Auto) 90.9 H (34.0-67.9) % Lymph % (Auto) 2.8 L (21.8-53.1) % [place] % (Auto) 3.8 L (5.3-12.2) % Eos % (Auto) 2.0 (0.8-7.0) Baso % (Auto) 0.0 L (0.1-1.2) % Neut # (Auto) 5.52 H (1.78-5.38) K/mm3 Lymph # (Auto) 0.17 L (1.32-3.57) K/mm3 [place] # (Auto) 0.23 L (0.30-0.82) K/mm3 Eos # (Auto) 0.12 (0.04-0.54) K/mm3 Baso # (Auto) 0.00 L (0.01-0.08) K/mm3 Manual Slide Review Abnormal smear Sodium 132 L (136-145) mEq/L Potassium 3.6 (3.5-5.1) mEq/L Chloride 100 (98-107) mEq/L Carbon Dioxide 26 (21-32) mEq/L Anion Gap 9.6 (5-15) BUN 32 H (7-18) mg/dL Creatinine 0.7 (0.7-1.3) mg/dL Est Cr Clr Drug Dosing 124.71 mL/min Estimated GFR (MDRD) > 60 (>60) mL/min BUN/Creatinine Ratio 45.7 H (14-18) Glucose 108 H (74-106) mg/dL Calcium 8.9 (8.5-10.1) mg/dL Magnesium 1.7 L (1.8-2.4) mg/dl Total Bilirubin 1.6 H (0.2-1.0) mg/dL AST 50 H (15-37) U/L ALT 52 (16-63) U/L Alkaline Phosphatase 878 H (46-116) U/L C-Reactive Protein 14.7 H* (<1.0) mg/dL Total Protein 4.7 L (6.4-8.2) g/dl Albumin 1.2 L (3.4-5.0) g/dl Globulin 3.5 gm/dL Albumin/Globulin Ratio 0.3 L (1-2) Vancomycin Trough 19.2 (10.0-20.0) Osiel Results Last 24 Hours: Microbiology 10/10/17 18:48 Aerobic Blood Culture - Preliminary Blood - Venous NO GROWTH AFTER 1 DAY Anaerobic Blood Culture - Preliminary NO GROWTH AFTER 1 DAY 10/10/17 18:38 Aerobic Blood Culture - Preliminary Blood - Venous - Lab Draw NO GROWTH AFTER 1 DAY Anaerobic Blood Culture - Preliminary NO GROWTH AFTER 1 DAY Med Orders - Current: Current Medications Acetaminophen (Tylenol) 650 mg PO Q4H PRN PRN Reason: Pain (Mild 1-3)/fever Last Admin: 10/11/17 04:57 Dose: 650 mg Albuterol/Ipratropium (Duoneb 3.0-0.5 Mg/3 Ml) 3 ml NEB Q4H PRN PRN Reason: Shortness Of Breath/wheezing Bisacodyl (Dulcolax) 10 mg RECTAL BID PRN PRN Reason: Constipation Last Admin: 10/10/17 14:01 Dose: 10 mg Hydralazine HCl (Apresoline) 20 mg IVPUSH Q4H PRN PRN Reason: Hypertension Hydrochlorothiazide (Hydrochlorothiazide) 12.5 mg PO BIDDIURETIC [facility] Last Admin: 10/12/17 13:31 Dose: 12.5 mg Hydromorphone HCl (Dilaudid) 0.5 mg IVPUSH Q2H PRN PRN Reason: Pain (severe 7-10) Last Admin: 10/11/17 22:04 Dose: 0.5 mg Promethazine HCl 12.5 mg/ (Sodium Chloride) 50.5 mls @ 100 mls/hr IV Q6H PRN PRN Reason: Nausea/Vomiting Ampicillin Sodium 2 gm/ Sodium (Chloride) 100 mls @ 200 mls/hr IV Q6H [facility] Last Admin: 10/12/17 13:31 Dose: 200 mls/hr Lorazepam (Ativan) 2 mg IVPUSH Q4H PRN PRN Reason: Seizures Lorazepam (Ativan) 1 mg IV Q6H PRN PRN Reason: Anxiety Magnesium Oxide (Magnesium Oxide) 400 mg PO BID [facility] Last Admin: 10/12/17 09:41 Dose: 400 mg Metoprolol Tartrate (Lopressor) 5 mg IVPUSH Q4H PRN PRN Reason: Tachycardia Multivitamins (Thera) 1 each PO DAILY [facility] Last Admin: 10/12/17 08:20 Dose: 1 each Ondansetron HCl (Zofran) 4 mg IV Q6H PRN PRN Reason: Nausea/Vomiting Oxycodone HCl (Oxycodone) 5 mg PO Q4H PRN PRN Reason: Pain (moderate 4-6) Saccharomyces Boulardii (Florastor) 250 mg PO BID [facility] Last Admin: 10/12/17 08:20 Dose: 250 mg Sodium Chloride (Saline Flush) 10 ml FLUSH ASDIRECTED PRN PRN Reason: Keep Vein Open Last Admin: 10/08/17 15:19 Dose: 10 ml Temazepam (Restoril) 15 mg PO BEDTIME PRN PRN Reason: Sleep Last Admin: 10/11/17 21:56 Dose: 15 mg Vitamin B Complex/Vitamin C (Super B With Vitamin C) 1 cap PO DAILY [facility] Last Admin: 10/12/17 08:20 Dose: 1 cap Discontinued Medications Bumetanide (Bumex) 0.5 mg IVPUSH ONETIME ONE Stop: 10/10/17 13:51 Last Admin: 10/10/17 15:30 Dose: 0.5 mg Bumetanide (Bumex) 0.5 mg IVPUSH ONETIME ONE Stop: 10/11/17 18:01 Last Admin: 10/11/17 19:01 Dose: 0.5 mg Dexamethasone (Dexamethasone) 4 mg IVPUSH ONETIME ONE Stop: 10/09/17 14:01 Last Admin: 10/09/17 13:58 Dose: 4 mg Diphenhydramine HCl (Benadryl) 25 mg IV ONETIME ONE Stop: 10/09/17 14:01 Last Admin: 10/09/17 14:02 Dose: 25 mg Fentanyl (Duragesic) 12 mcg TRDERM Q72H [facility] Last Admin: 10/08/17 23:07 Dose: Not Given Furosemide (Lasix) 20 mg PO BIDDIURETIC [facility] Last Admin: 10/09/17 05:26 Dose: 20 mg Hydromorphone HCl (Dilaudid) 0.5 mg IVPUSH ONETIME ONE Stop: 10/08/17 14:45 Last Admin: 10/08/17 15:19 Dose: 0.5 mg Hydromorphone HCl (Dilaudid) 0.25 mg IVPUSH Q2H PRN PRN Reason: Pain (severe 7-10) Sodium Chloride (Normal Saline) 1,000 mls @ 150 mls/hr IV ASDIRECTED [facility] Cefepime HCl 2 gm/ Premix 50 mls @ 100 mls/hr IV ONETIME ONE Stop: 10/08/17 18:40 Last Admin: 10/08/17 18:41 Dose: 100 mls/hr Vancomycin HCl 2 gm/ Sodium (Chloride) 250 mls @ 250 mls/hr IV ONETIME ONE Stop: 10/08/17 19:10 Last Admin: 10/08/17 19:04 Dose: Not Given Vancomycin HCl 2 gm/ Sodium (Chloride) 250 mls @ 250 mls/hr IV ONETIME ONE Stop: 10/08/17 19:25 Last Admin: 10/08/17 19:04 Dose: Not Given Sodium Chloride (Normal Saline) Confirm Administered Dose 250 mls @ as directed .ROUTE .STK-MED ONE Stop: 10/08/17 18:51 Last Admin: 10/08/17 19:03 Dose: Not Given Vancomycin HCl 2 gm/ Sodium (Chloride) 250 mls @ 250 mls/hr IV ONETIME ONE Stop: 10/08/17 19:59 Last Admin: 10/08/17 19:17 Dose: 250 mls/hr Cefotaxime Sodium 2 gm/ Sodium (Chloride) 50 mls @ 100 mls/hr IV Q8H [facility] Last Admin: 10/10/17 05:03 Dose: 100 mls/hr Vancomycin HCl 1.25 gm/ Sodium (Chloride) 500 mls @ 333 mls/hr IV Q8H [facility] Last Admin: 10/09/17 14:06 Dose: Not Given Vancomycin HCl 1.25 gm/ Sodium (Chloride) 250 mls @ 166.512 mls/hr IV Q8H [facility] Last Admin: 10/09/17 17:46 Dose: 166.512 mls/hr Furosemide 100 mg/ Sodium (Chloride) 100 mls @ 4 mls/hr IV TITRATE [facility] PRN Reason: Protocol Stop: 10/10/17 12:30 Last Admin: 10/09/17 12:47 Dose: 4 mls/hr Sodium Chloride (Normal Saline) 250 mls @ 250 mls/hr IV ASDIRECTED [facility] Stop: 10/09/17 18:00 Last Admin: 10/09/17 17:54 Dose: 250 mls/hr Vancomycin HCl 1.25 gm/ Sodium (Chloride) 250 mls @ 166.512 mls/hr IV Q12H [facility] Last Admin: 10/12/17 03:58 Dose: 166.512 mls/hr Magnesium Sulfate 2 gm/ Premix 50 mls @ 25 mls/hr IV ONETIME ONE Stop: 10/10/17 10:59 Last Admin: 10/10/17 09:53 Dose: 25 mls/hr Lactulose (Cephulac) 20 gm PO BID [facility] Last Admin: 10/10/17 14:01 Dose: 20 gm Lidocaine/Epinephrine (Xylocaine 1% With Epinephrine 1:100,000) 20 ml INJECT ONETIME ONE Stop: 10/08/17 17:15 Last Admin: 10/08/17 19:22 Dose: Not Given Lidocaine/Epinephrine (Xylocaine 1% With Epinephrine 1:100,000) 20 ml INJECT ONETIME ONE Stop: 10/08/17 17:16 Last Admin: 10/08/17 19:22 Dose: Not Given Lorazepam (Ativan) 0.5 mg IVPUSH ONETIME ONE PRN Reason: Protocol Stop: 10/08/17 21:42 Last Admin: 10/08/17 23:07 Dose: Not Given Magnesium Hydroxide (Milk Of Magnesia) 30 ml PO ONETIME ONE Stop: 10/10/17 05:01 Last Admin: 10/10/17 04:18 Dose: 30 ml Magnesium Oxide (Magnesium Oxide) 800 mg PO ONETIME ONE Stop: 10/09/17 09:01 Last Admin: 10/09/17 09:04 Dose: 800 mg Magnesium Oxide (Magnesium Oxide) 400 mg PO ONETIME ONE Stop: 10/11/17 15:46 Last Admin: 10/11/17 16:51 Dose: 400 mg Magnesium Sulfate (Pharmacy To Dose - Magnesium Replacement) 0 dose .XX ASDIRECTED PRN PRN Reason: RX TO WATCH MAG LEVELS Miscellaneous Information (Remove Patch) 1 ea TRDERM Q72H [facility] Last Admin: 10/08/17 23:08 Dose: Not Given Non-Formulary Medication (Lutein) 10 mg PO DAILY [facility] Ondansetron HCl (Zofran) 4 mg IVPUSH ONETIME ONE Stop: 10/08/17 14:45 Last Admin: 10/08/17 15:19 Dose: 4 mg Potassium Chloride (Pharmacy To Dose - Potassium Replacement) 0 dose .XX ASDIRECTED PRN PRN Reason: RX TO WATCH K LEVELS Vancomycin HCl (Pharmacy To Dose - Vancomycin) 0 dose .XX ASDIRECTED PRN PRN Reason: RX TO DOSE VANCOMYCIN - Exam Quality Assessment: DVT Prophylaxis General: Alert, Oriented, Cooperative, No Acute Distress HEENT: Pupils Equal, Pupils Reactive, EOMI Neck: Trachea Midline, No JVD Lungs: Normal Respiratory Effort Cardiovascular: Regular Rate, Regular Rhythm GI/Abdominal Exam: Normal Bowel Sounds, Soft, Non-Tender, No Organomegaly, Distended (Male) Exam: Deferred Back Exam: Normal Inspection Extremities: Normal Inspection, Non-Tender Skin: Warm Neurological: No New Focal Deficit Psy/Mental Status: Alert - Problem List Review Problem List Initiated/Reviewed/Updated: Yes - My Orders Last 24 Hours: My Active Orders 10/12/17 13:00 Ampicillin 2 gm Sodium Chloride 0.9% [Normal Saline] 100 ml IV Q6H - Plan Plan:: Assessment/Plan: Acute: Bacteremia - 07/27 bottle pos for Enterococcus Faecalis sensitive to Vancomycin - Continue Vancomycin - Cannot r/o contamination - Has PICC line as possible source - Repeat blood culture is pending so far Abdominal Ascites and Edema, Improved - 2/2 Pancreatic Cancer - Abdominal CT scan report reads multiple low density lesions within the right and left lobes of the liver ; necrotic liver metastasis versus polycystic liver disease. Small right-sided per effusion and moderate ascites within the abdomen - Dr. España consult for paracentesis; recommended against it - PRN and Scheduled Pain Medications - D/c lasix drip at noon; will continue him on loop diuretic BID SSTI/Erysipelas, continues to improve - CRP 19.5 --> 31.34 --> 18.9 --> 13.3 - Erythema around abdomen - High Risk for SBP; at this point I do not feel he has bacterial peritonitis - Continue Vancomycin 1 violeta BID for pharmacy to dose; Vancomycin Trough 24.3 level - Recommend Quinolone prophylaxis after discharge - Monitor response Pancytopenia, Stable - 2/2 Underlying Malignancy - Hgb is 8.8; no baseline--> 8.0--> now 10.1 S/p 2 units of PRBC - He now feels better but still weak Hypoalbuminemia - Albumin of 1.5--> 1.3--> now 1.4 - He has adequate protein intake - Dietary consult for protein wasting syndrome Hypomagnesemia - Mg 1.7--> same - 2/2 inadequate intake - Replete and monitor Generalized Weakness, Improved - 2/2 Above - Continue with ambulation as tolerated - Eat whatever he wants Chronic: Pancreatic Cancer Weight Loss Plan: He remains clinically stable Routine AM Labs Continue PT/OT Dietary Consult GS consulted for paracentesis SW/CM for d/c planning Code Status:1 Overall prognosis is poor with pancreatic cancer. LOS anticipate > 96 hrs pending result of repeat blood cultures
[2017-10-12] MEDS: HYDROmorphone 0.5 MG/0.5 ML SYRINGE IVPUSH PRN (20:44)
[2017-10-12] MEDS: Temazepam 15 MG Cap PO PRN (22:06)
[2017-10-13] MEDS: Ampicillin 2 GM in Sodium Chloride 0.9% 100 ML IV SCH ×2 (01:10→06:24)
[2017-10-13] MEDS: Hydrochlorothiazide 12.5 MG Cap PO SCH ×3 (06:25→15:30)
[2017-10-13] MEDS: Saccharomyces Boulardii (Probiotic) 250 MG Cap PO SCH (08:38)
[2017-10-13] MEDS: Magnesium Oxide 400 MG Tab PO SCH (08:38)
[2017-10-13] MEDS: Multivitamins,Therapeutic Tab PO SCH (08:38)
[2017-10-13] MEDS: Vitamin B Complex With Vitamin C Cap PO SCH (08:38)
[2017-10-13] MEDS ORDERED: Magnesium Sulfate/Water 2 GM in Premix Bag 1 BAG IV ONE (10:30)
--- NOTE | 2017-10-13 11:15 | PCM.DCSUM1 ---
Discharge Summary - Hospital Course Free Text/Narrative:: This is s 61 yo white male with no significant past medical hx/o who comes in for worsening abdominal tightness and edema. Patient carries a hx/o pancreatic cancer. He was diagnosed back in 2015 in [place], [place]. He took oncologic treatment up until November of 2016. He was referred to [facility] on the 22 of December and then received radiation therapy for 5 weeks at the end of January 2017. He is currently following Dr. David Salazar for oncologic care in [place], [place]. He has been going to [facility] for routine paracentesis. Unfortunately, IR is not available so he proceeded to come over here to [place] for further evaluation. He had his port-a-cath removed about a week ago and currently has a PICC line for IV access. He also just completed an intravenous infusion of Rocephin. Patient denies alcohol or tobacco use. He further denies any history of pancreatic cancer in the family. His initial workup in the emergency department shows a CBC remarkable for WBC of 20.08, RBC of 3.03, hemoglobin of 8.8, hematocrit of 28, MCHC of 31.4, RDW of 17.6, platelet count of 136, neutrophils of 92% and lymphocytes of 5%. His chemistry is remarkable for sodium of 132, BUN of 33, glucose of 157, total bilirubin of 1.9, AST of 147, ALT of 93, alkaline phosphatase of 1022, CRP of 19.5, proBNP of 278, total protein of 5.2, albumin of 1.5, and lipase of 29. His UA is negative for urinary tract infection. Chest/abdominal x-ray shows small pleural effusions. TIPS stent and right sided PICC line. Patient is being admitted for abdominal ascites and distension secondary to pancreatic cancer. He is full code. - Discharge Data Discharge Date: 10/13/17 Discharge Disposition: Home, Self-Care 01 Condition: Good - Patient Summary/Data Consults: Consultations 10/08/17 21:27 Consult to Case Management [CONS] Routine Consult to Physician [CONS] Routine Consult to Wash Plant Operator [CONS] Routine Consult to Spiritual Care [CONS] Routine OT Evaluation and Treatment [CONS] Routine PT Evaluation and Treatment [CONS] Routine 10/09/17 07:46 Consult to Dietary [Consult to Retirement Actuary] [CONS] Routine - Patient Instructions Diet: Usual Diet as Tolerated Activity: As Tolerated Driving: Do Not Drive Showering/Bathing: May Shower Notify Provider of: Fever, Increased Pain, Nausea and/or Vomiting - Discharge Plan Prescriptions/Med Rec: Cephalexin 250 mg PO Q6HR 8 Days capsule Magnesium Oxide 400 mg PO BID #60 tablet Saccharomyces Boulardii [Florastor] 250 mg PO BID #30 cap Temazepam [Restoril] 7.5 mg PO BEDTIME PRN #5 cap PRN Reason: Insomnia Home Medications: Home Meds Furosemide [Lasix] 20 mg PO BID 10/08/17 [History] Lutein 0 mg PO DAILY 10/08/17 [History] Multivitamin [Multivitamins] 1 cap PO DAILY 10/08/17 [History] Potassium Chloride [K-Tab ER] 20 meq PO BID 10/08/17 [History] Vitamin B Complex [B Complex] 1 tab PO DAILY 10/08/17 [History] Cephalexin 250 mg PO Q6HR 8 Days capsule 10/13/17 [Rx] Magnesium Oxide 400 mg PO BID #60 tablet 10/13/17 [Rx] Saccharomyces Boulardii [Florastor] 250 mg PO BID #30 cap 10/13/17 [Rx] Temazepam [Restoril] 7.5 mg PO BEDTIME PRN #5 cap 10/13/17 [Rx] Referrals: PCP,Not In Area [Primary Care Provider] - - Discharge Summary/Plan Comment DC Time >30 min.: No Discharge Summary/Plan Comment: Assessment/Plan: Acute: Bacteremia - 07/27 bottle pos for Enterococcus Faecalis sensitive to Vancomycin - Continue Vancomycin-->stopped - Cannot r/o contamination - Has PICC line as possible source - Repeat blood culture is pending so far were negative; IV ATB not required at DC -Probiotic at DC Abdominal Ascites and Edema, Improved - 2/2 Pancreatic Cancer - Abdominal CT scan report reads multiple low density lesions within the right and left lobes of the liver ; necrotic liver metastasis versus polycystic liver disease. Small right-sided per effusion and moderate ascites within the abdomen - Dr. España consult for paracentesis; recommended against it - PRN and Scheduled Pain Medications - D/c lasix drip at noon; will continue him on loop diuretic BID SSTI/Erysipelas, continues to improve - CRP 19.5 --> 31.34 --> 18.9 --> 13.3 - Erythema around abdomen - High Risk for SBP; did not have bacterial peritonitis - Continue Vancomycin 1 violeta BID for pharmacy to dose; Vancomycin Trough 24.3 level - Recommend Quinolone prophylaxis after discharge TBD by primary; 48 hours additional treatment with Keflex 250 mg QID. - Monitor response Pancytopenia, Stable - 2/2 Underlying Malignancy - Hgb is 8.8; no baseline--> 8.0--> now 10.1 S/p 2 units of PRBC; remained stable - He now feels better but still weak Hypoalbuminemia - Albumin of 1.5--> 1.3--> now 1.4 - He has adequate protein intake - Dietary consult for protein wasting syndrome Hypomagnesemia - Mg 1.7--> same; received 2 gm MgSO4 pre DC, will continue MgO 400 mg BID - 2/2 inadequate intake - Replete and monitor Generalized Weakness, Improved - 2/2 Above - Continue with ambulation as tolerated - Eat whatever he wants Chronic: Pancreatic Cancer Weight Loss Plan: He remains clinically stable Routine AM Labs Continue PT/OT Dietary Consult GS consulted for paracentesis SW/CM for d/c planning Code Status:1 Overall prognosis is poor with pancreatic cancer. LOS anticipate > 96 hrs pending result of repeat blood cultures - General Info Date of Service: 10/08/17 - Patient Data Vitals - Most Recent: Last Vital Signs Temp 37.2 C 10/13/17 08:04 Pulse 85 10/13/17 08:04 Resp 17 10/13/17 08:04 BP 101/68 10/13/17 08:04 Pulse Ox 93 L 10/13/17 08:04 Weight - Most Recent: 86.727 kg I&O - Last 24 hours: Intake & Output 10/12/17 10/13/17 10/13/17 22:59 06:59 14:59 Intake Total 815 150 Output Total 700 400 Balance 115 -250 GAB Results - Last 24 hrs: Microbiology 10/10/17 18:48 Aerobic Blood Culture - Preliminary Blood - Venous NO GROWTH AFTER 2 DAYS Anaerobic Blood Culture - Preliminary NO GROWTH AFTER 2 DAYS 10/10/17 18:38 Aerobic Blood Culture - Preliminary Blood - Venous - Lab Draw NO GROWTH AFTER 2 DAYS Anaerobic Blood Culture - Preliminary NO GROWTH AFTER 2 DAYS Med Orders - Current: Current Medications Acetaminophen (Tylenol) 650 mg PO Q4H PRN PRN Reason: Pain (Mild 1-3)/fever Last Admin: 10/11/17 04:57 Dose: 650 mg Albuterol/Ipratropium (Duoneb 3.0-0.5 Mg/3 Ml) 3 ml NEB Q4H PRN PRN Reason: Shortness Of Breath/wheezing Bisacodyl (Dulcolax) 10 mg RECTAL BID PRN PRN Reason: Constipation Last Admin: 10/10/17 14:01 Dose: 10 mg Hydralazine HCl (Apresoline) 20 mg IVPUSH Q4H PRN PRN Reason: Hypertension Hydrochlorothiazide (Hydrochlorothiazide) 12.5 mg PO BIDDIURETIC [facility] Last Admin: 10/13/17 06:25 Dose: 12.5 mg Hydromorphone HCl (Dilaudid) 0.5 mg IVPUSH Q2H PRN PRN Reason: Pain (severe 7-10) Last Admin: 10/12/17 20:44 Dose: 0.5 mg Promethazine HCl 12.5 mg/ (Sodium Chloride) 50.5 mls @ 100 mls/hr IV Q6H PRN PRN Reason: Nausea/Vomiting Ampicillin Sodium 2 gm/ Sodium (Chloride) 100 mls @ 200 mls/hr IV Q6H [facility] Last Admin: 10/13/17 06:24 Dose: 200 mls/hr Magnesium Sulfate 2 gm/ Premix 50 mls @ 25 mls/hr IV ONETIME ONE Stop: 10/13/17 12:29 Last Admin: 10/13/17 11:11 Dose: 25 mls/hr Lorazepam (Ativan) 2 mg IVPUSH Q4H PRN PRN Reason: Seizures Lorazepam (Ativan) 1 mg IV Q6H PRN PRN Reason: Anxiety Magnesium Oxide (Magnesium Oxide) 400 mg PO BID [facility] Last Admin: 10/13/17 08:38 Dose: 400 mg Metoprolol Tartrate (Lopressor) 5 mg IVPUSH Q4H PRN PRN Reason: Tachycardia Multivitamins (Thera) 1 each PO DAILY [facility] Last Admin: 10/13/17 08:38 Dose: 1 each Ondansetron HCl (Zofran) 4 mg IV Q6H PRN PRN Reason: Nausea/Vomiting Oxycodone HCl (Oxycodone) 5 mg PO Q4H PRN PRN Reason: Pain (moderate 4-6) Saccharomyces Boulardii (Florastor) 250 mg PO BID [facility] Last Admin: 10/13/17 08:38 Dose: 250 mg Sodium Chloride (Saline Flush) 10 ml FLUSH ASDIRECTED PRN PRN Reason: Keep Vein Open Last Admin: 10/08/17 15:19 Dose: 10 ml Temazepam (Restoril) 15 mg PO BEDTIME PRN PRN Reason: Sleep Last Admin: 10/12/17 22:06 Dose: 15 mg Vitamin B Complex/Vitamin C (Super B With Vitamin C) 1 cap PO DAILY [facility] Last Admin: 10/13/17 08:38 Dose: 1 cap Discontinued Medications Bumetanide (Bumex) 0.5 mg IVPUSH ONETIME ONE Stop: 10/10/17 13:51 Last Admin: 10/10/17 15:30 Dose: 0.5 mg Bumetanide (Bumex) 0.5 mg IVPUSH ONETIME ONE Stop: 10/11/17 18:01 Last Admin: 10/11/17 19:01 Dose: 0.5 mg Dexamethasone (Dexamethasone) 4 mg IVPUSH ONETIME ONE Stop: 10/09/17 14:01 Last Admin: 10/09/17 13:58 Dose: 4 mg Diphenhydramine HCl (Benadryl) 25 mg IV ONETIME ONE Stop: 10/09/17 14:01 Last Admin: 10/09/17 14:02 Dose: 25 mg Fentanyl (Duragesic) 12 mcg TRDERM Q72H [facility] Last Admin: 10/08/17 23:07 Dose: Not Given Furosemide (Lasix) 20 mg PO BIDDIURETIC [facility] Last Admin: 10/09/17 05:26 Dose: 20 mg Hydromorphone HCl (Dilaudid) 0.5 mg IVPUSH ONETIME ONE Stop: 10/08/17 14:45 Last Admin: 10/08/17 15:19 Dose: 0.5 mg Hydromorphone HCl (Dilaudid) 0.25 mg IVPUSH Q2H PRN PRN Reason: Pain (severe 7-10) Sodium Chloride (Normal Saline) 1,000 mls @ 150 mls/hr IV ASDIRECTED [facility] Cefepime HCl 2 gm/ Premix 50 mls @ 100 mls/hr IV ONETIME ONE Stop: 10/08/17 18:40 Last Admin: 10/08/17 18:41 Dose: 100 mls/hr Vancomycin HCl 2 gm/ Sodium (Chloride) 250 mls @ 250 mls/hr IV ONETIME ONE Stop: 10/08/17 19:10 Last Admin: 10/08/17 19:04 Dose: Not Given Vancomycin HCl 2 gm/ Sodium (Chloride) 250 mls @ 250 mls/hr IV ONETIME ONE Stop: 10/08/17 19:25 Last Admin: 10/08/17 19:04 Dose: Not Given Sodium Chloride (Normal Saline) Confirm Administered Dose 250 mls @ as directed .ROUTE .STK-MED ONE Stop: 10/08/17 18:51 Last Admin: 10/08/17 19:03 Dose: Not Given Vancomycin HCl 2 gm/ Sodium (Chloride) 250 mls @ 250 mls/hr IV ONETIME ONE Stop: 10/08/17 19:59 Last Admin: 10/08/17 19:17 Dose: 250 mls/hr Cefotaxime Sodium 2 gm/ Sodium (Chloride) 50 mls @ 100 mls/hr IV Q8H [facility] Last Admin: 10/10/17 05:03 Dose: 100 mls/hr Vancomycin HCl 1.25 gm/ Sodium (Chloride) 500 mls @ 333 mls/hr IV Q8H [facility] Last Admin: 10/09/17 14:06 Dose: Not Given Vancomycin HCl 1.25 gm/ Sodium (Chloride) 250 mls @ 166.512 mls/hr IV Q8H [facility] Last Admin: 10/09/17 17:46 Dose: 166.512 mls/hr Furosemide 100 mg/ Sodium (Chloride) 100 mls @ 4 mls/hr IV TITRATE [facility] PRN Reason: Protocol Stop: 10/10/17 12:30 Last Admin: 10/09/17 12:47 Dose: 4 mls/hr Sodium Chloride (Normal Saline) 250 mls @ 250 mls/hr IV ASDIRECTED [facility] Stop: 10/09/17 18:00 Last Admin: 10/09/17 17:54 Dose: 250 mls/hr Vancomycin HCl 1.25 gm/ Sodium (Chloride) 250 mls @ 166.512 mls/hr IV Q12H [facility] Last Admin: 03/22/18 03:58 Dose: 166.512 mls/hr Magnesium Sulfate 2 gm/ Premix 50 mls @ 25 mls/hr IV ONETIME ONE Stop: 10/10/17 10:59 Last Admin: 10/10/17 09:53 Dose: 25 mls/hr Lactulose (Cephulac) 20 gm PO BID [facility] Last Admin: 10/10/17 14:01 Dose: 20 gm Lidocaine/Epinephrine (Xylocaine 1% With Epinephrine 1:100,000) 20 ml INJECT ONETIME ONE Stop: 10/08/17 17:15 Last Admin: 10/08/17 19:22 Dose: Not Given Lidocaine/Epinephrine (Xylocaine 1% With Epinephrine 1:100,000) 20 ml INJECT ONETIME ONE Stop: 10/08/17 17:16 Last Admin: 10/08/17 19:22 Dose: Not Given Lorazepam (Ativan) 0.5 mg IVPUSH ONETIME ONE PRN Reason: Protocol Stop: 10/08/17 21:42 Last Admin: 10/08/17 23:07 Dose: Not Given Magnesium Hydroxide (Milk Of Magnesia) 30 ml PO ONETIME ONE Stop: 10/10/17 05:01 Last Admin: 10/10/17 04:18 Dose: 30 ml Magnesium Oxide (Magnesium Oxide) 800 mg PO ONETIME ONE Stop: 10/09/17 09:01 Last Admin: 10/09/17 09:04 Dose: 800 mg Magnesium Oxide (Magnesium Oxide) 400 mg PO ONETIME ONE Stop: 10/11/17 15:46 Last Admin: 10/11/17 16:51 Dose: 400 mg Magnesium Sulfate (Pharmacy To Dose - Magnesium Replacement) 0 dose .XX ASDIRECTED PRN PRN Reason: RX TO WATCH MAG LEVELS Miscellaneous Information (Remove Patch) 1 ea TRDERM Q72H [facility] Last Admin: 10/08/17 23:08 Dose: Not Given Non-Formulary Medication (Lutein) 10 mg PO DAILY [facility] Ondansetron HCl (Zofran) 4 mg IVPUSH ONETIME ONE Stop: 10/08/17 14:45 Last Admin: 10/08/17 15:19 Dose: 4 mg Potassium Chloride (Pharmacy To Dose - Potassium Replacement) 0 dose .XX ASDIRECTED PRN PRN Reason: RX TO WATCH K LEVELS Vancomycin HCl (Pharmacy To Dose - Vancomycin) 0 dose .XX ASDIRECTED PRN PRN Reason: RX TO DOSE VANCOMYCIN *Q Meaningful Use (DIS) - VTE *Q VTE Criteria *Q: - Stroke *Q Stroke Criteria *Q: - AMI *Q AMI Criteria *Q:
[2017-10-13] MEDS ORDERED: Cephalexin 500 MG Cap PO SCH (12:00)
== END 2017-10-13 14:05 | disposition home or self-care (01) | DRG 603 ==
LOC: JD.ED 14:12 → UNDOADMIN 19:48 → JD.MS 19:48
PROVIDERS: ADMIT Internal Medicine; ATTEND Internal Medicine
DX: L03.311 Cellulitis of abdominal wall (principal); R18.0 Malignant ascites; C25.9 Malignant neoplasm of pancreas, unspecified; D61.818 Other pancytopenia; C78.7 Secondary malignant neoplasm of liver and intrahepatic bile duct; Q44.6 Cystic disease of liver; T80.211A Bloodstream infection due to central venous catheter, initial encounter; A46 Erysipelas; D64.9 Anemia, unspecified; E88.09 Other disorders of plasma-protein metabolism, not elsewhere classified; R63.4 Abnormal weight loss; Z68.25 Body mass index [BMI] 25.0-25.9, adult; E83.42 Hypomagnesemia; R53.1 Weakness; Z93.8 Other artificial opening status; Z79.899 Other long term (current) drug therapy
CPT/HCPCS: 36415; 36430; 51798; 74022; 74022-26; 74176; 74176-26; 80053; 80202; 81001; 83605; 83690; 83735; 83880; 85025; 86140; 86850; 86900; 86901; 86922; 87040; 87077; 87186; 93005; 96365; 96367; 96375; 97116-GP; 97161-GP; 97165-GO; 97530-GO; 99223; 99231; 99232; 99238; 99285; 99285-25; A9270; A9270-GY; J0290; J0692; J0698; J1100; J1170; J1200; J1940; J2060; J2405; J3370; J3475; J7030; J7050; P9016